=== PATIENT | female | born 1955 | race Caucasian/White ===

== ENCOUNTER 2016-07-23 17:56 | Inpatient (IN) | payer OTHER ==
[~2016-07-23] VITALS: Ht 165.1 cm; Wt 95.3 kg
[~2016-07-23 17:56] MED LIST: AUGMENTIN 875 M1 TAB PO; B12 1MG PE1000 MCG/M IM; DESYREL50 MG PO; DONEPEZIL HCL10 MG PO; DONEPEZIL HYDRO10 MG PO; ESCITALOPRAM10 MG PO; FIORICET 325 MG1 TAB PO; FLEXERIL10 MG PO; GABAPENTIN400 M2 PO; HYDROCODONE/APA1 TA1 PO; LEVOTHROID0.2 MG PO; LEVOTHYROXIN0.025 MG PO; LEVOTHYROXIN0.175 MG PO; MEDROL 2 MG TABL2 MG PO; MOBIC15 MG PO; MORPHINE SULFAT15 M1 PO; MOTRIN 600 MG600 MG PO; MS CONTIN15 M1 PO; MS CONTIN30 MG PO; NAPROSYN375 MG PO; NAPROXEN500 MG PO; OXYCONTIN10 MG PO; PERCOCET 325 MG1 TA2 PO; PREDNISONE 20MG20 MG PO; REGLAN10 MG PO; TRAZODO50 MG PO
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
--- NOTE | 2016-07-23 18:25 | NUR ---
URINE TRIO SENT AND LABS DRAWN VIA BUTTERFLY AND SENT TO LAB (BLUE, SST, LAV)
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
[2016-07-23 18:44] LABS: ABSOLUTE BASOPHIL COUNT 0.1 /CUMM (0.0-0.2); ABSOLUTE EOSINOPHIL COUNT 0.2 /CUMM (0.0-0.7); ABSOLUTE GRANULOCYTE CT 6.5 /CUMM (1.4-6.5); ABSOLUTE LYMPH COUNT 2.1 /CUMM (1.2-3.4); ABSOLUTE MONOCYTE COUNT 0.6 /CUMM (0.10-0.60); BASOPHIL % 0.7 % (0.0-2.0); GRANULOCYTE % 69.1 % (42.2-75.2); HEMATOCRIT 40.1 % (37-47); MEAN CORPUSCULAR HGB 33.1 PG (27.0-31.0); MEAN CORPUSCULAR HGB CONC 34.5 G/DL (33.0-37.0); MEAN CORPUSCULAR VOLUME 95.8 FL (81.0-99.0); PLATELET COUNT 226 /CUMM (130-400); RBC DISTRIBUTION WIDTH 12.6 % (11.5-14.5); RED BLOOD CELL CT 4.18 /CUMM (4.20-5.40); WHITE BLOOD CELL COUNT 9.4 /CUMM (4.8-10.8)
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
--- NOTE | 2016-07-23 20:34 | NUR ---
PER CRISIS, HOLD OVER NIGHT AND [facility] PSYCH BED SEARCH TO BE ATTEMPTED AGAIN TOMORROW. MESSAGE LEFT WITH DAUGHTER BY CRISIS
--- NOTE | 2016-07-23 21:48 | NUR ---
MEDICATED WITH TYLENOL PER EMAR FOR SHOULDER PAIN
--- NOTE | 2016-07-24 | NUR ---
SLEEPING AT THIS TIME SITTER AT DOOR.
--- NOTE | 2016-07-24 04:00 | NUR ---
CONTINUES TO SLEEP SITTER AT DOOR.
--- NOTE | 2016-07-24 08:04 | NUR ---
ASSUMED CARE. PT AWAKE, C/O PAIN IN BOTH SHOULDERS, DR. HUSSEIN AWARE.
--- NOTE | 2016-07-24 10:00 | NUR ---
AM MEDS GIVEN, MS CONTIN 30 MG HELD: GIVEN AT 0830.
--- NOTE | 2016-07-24 11:41 | NUR ---
SW met with the patient for reassessment this AM. The patient presents alert and pleasantly confused. SW will continue to look for a Geropsychiatry inaptient placement, however Dr. Barahona would like further medical clearance. Case discussed with Dr. Jean-Baptiste who will order additional tests. MARICRUZ will continue to follow.
--- NOTE | 2016-07-24 13:58 | NUR ---
LABS DRAWN ORDERED. UA SENT.
--- NOTE | 2016-07-24 15:42 | NUR ---
ASSUMED CARE OF PT. PT UP TO BATHROOM. PT CONCERNED SHE HAS NO CLEAN UNDERWEAR. GIVEN DISPOSABLE UNDERWEAR AND BARRIER WIPES. PT INFORMED SHE HAS UTI AND WILL NEED IV ANTIBIOTICS. IV STARTED BY LALO GARCÍA
--- NOTE | 2016-07-24 16:27 | NUR ---
BLOOD CULTURES DRAWN. HOUSE STAFF IN TO SEE PT. PT ORIENTED X2-3 BUT OTHERWISE WITH INAPPRORIATE CONVERSATIONS INDICATING CONFUSION. DID NOT REMEMBER THAT I INTORDUCED MYSELF TO HER A FEW MINUTES AGO.
--- NOTE | 2016-07-24 16:32 | NUR ---
PT HAS BED ASSIGNMENT [id number]
[2016-07-24] MEDS ORDERED: OXYCONTIN20 M1 PO (16:47)
[2016-07-24] MEDS ORDERED: OXYCODONE HCL15 M1 PO (16:48)
--- NOTE | 2016-07-24 16:50 | NUR ---
REPORT CALLED TO ELIA ON . ELIA NOTIFIED PT DUE FOR MS CONTIN AND NEURONTIN
--- NOTE | 2016-07-24 17:07 | NUR ---
DR RAINES IN TO SEE PT. NOTIFIED THAT PT HAS NO DOCUMENTED HISTORY OF HTN BUT BLOOD PRESSURES MILDLY ELEVATED IN ED. NORVASC TO BE ORDERED. SPOKED WITH CRISIS TO ASK IF DTR SHOULD BE ALLOWED TO VISIT. CRISIS STATES IT SHOULD BE UP TO PT IF SHE CAN VISIT.
--- NOTE | 2016-07-24 17:20 | NUR ---
Case discussed with Dr. Barahona and Dr. Best and it was determined that the patient would be admitted to the medical service.
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
--- NOTE | 2016-07-24 17:35 | NUR ---
PT GIVEN NORVASC. RODRIGEZ ON [address] NOTIFIED THAT PT HAS ORDER FOR PT SAFETY MONITOR. TRANSFER TO FLOOR DELAYED UNTIL SITTER CAN BE ARRANGED
--- NOTE | 2016-07-24 17:56 | NUR ---
ELIA ON CALLED TO GIVE UPDATE. INFORMED THAT PT GOT ELENAC AND THAT SITTER IS ACCOMPANING PT UPSTAIRS
--- NOTE | 2016-07-24 17:57 | NUR ---
ELIA AWARE EKG HAS BEEN ORDERED AND NEEDS TO BE DONE
[2016-07-24 18:19] VITALS: BP 190/80
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
[2016-07-24 23:40] VITALS: BP 152/76
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
--- NOTE | 2016-07-25 07:24 | PN- Housestaff ---
SHRUTI RAINES MD 07/25/16 0724: Subjective Follow-up For: Altered mental status Suicidal ideation UTI Subjective: Patient seen and examined. She is seen sitting upright in bed resting comfortably. She appears to be in no acute distress. Sitter still in place - collateral information obtained reveals that patient "had a good night". She says she feels better today than in previous days and is "surrounded by wonderful people". She is oriented to person and place but believes the year is 2039. Her speech is of normal tone and alex but tangential. She is pleasant and appropriate. She reports pain in her shoulders that she attributes to her "rotator cuffs". She also admits to urinary burning and pain without frequency or urgency. Additionally she denies any current headache, fever, chills, chest pain, shortness of breath, nausea, vomiting, diarrhea. No overnight events reported. Review of Systems Constitutional: Reports: see HPI. Objective Last 24 Hrs of Vital Signs/I&O Vital Signs Date Time Temp Pulse Resp B/P Pulse O2 O2 Flow FiO2 Ox Delivery Rate 07/25 0931 150/70 07/25 0823 98.1 57 20 150/69 99 Room Air 07/24 2340 98.5 62 20 152/76 95 Room Air 07/24 1842 70 190/80 07/24 1819 98.2 70 19 190/80 95 Room Air 07/24 1727 62 178/86 07/24 1707 98.0 62 16 178/86 98 Room Air 07/24 1604 97.3 98 15 163/74 98 Room Air Intake & Output 07/25 1600 07/25 0800 07/25 0000 Intake Total 400 100 Output Total Balance 400 100 Intake, Oral 400 100 Patient 95.254 kg Weight Physical Exam General Appearance: Alert, Cooperative, No Acute Distress Other Physical Findings: General - well developed, middle-aged woman in no acute distress HEENT - NCAT, EOMI, PERRL, anicteric sclera CVS - S1, S2 w/o m/g/r Resp - CTA bilaterally GI - soft, nontender, nondistended, bowel sounds +, no CVA tenderness Neuro - Awake and alert, orient to person/place and not time, CN II - XII grossly intact Ext - distal pulses 2+, no BL LE edema Current Medications: Current Medications Sig/Nae Start time Last Medication Dose Route Stop Time Status Admin Acetaminophen 650 MG Q6P PRN 07/24 1730 AC PO Amlodipine Besylate 5 MG DAILY 07/25 1000 AC 07/25 PO 0931 Amlodipine Besylate 0 .STK-MED ONE 07/24 1727 DC PO Amlodipine Besylate 5 MG ONCE ONE 07/24 1715 DC 07/24 PO 07/24 1716 1727 Captopril 6.25 MG ONCE ONE 07/24 1830 DC 07/24 PO 07/24 1831 1842 Ceftriaxone Sodium 1,000 MG DAILY 07/25 1000 AC 07/25 IV 0931 Ceftriaxone Sodium 0 .STK-MED ONE 07/24 1636 DC .ROUTE Ceftriaxone Sodium 1,000 MG ONCE ONE 07/24 1530 DC 07/24 IV 07/24 1531 1649 Escitalopram Oxalate 5 MG DAILY 07/25 1000 AC 07/25 PO 1131 Escitalopram Oxalate 10 MG DAILY 07/24 1000 DC 07/24 PO 1005 Gabapentin 400 MG TID 07/24 1000 AC 07/25 PO 1131 Haloperidol 0.5 MG DAILY PRN 07/24 1815 AC PO Heparin Sodium 5,000 UNIT Q8 07/24 2200 AC 07/25 (Porcine) SC 0643 Influenza Virus 0.5 ML ONCE ONE 07/24 1930 DC 07/24 Vaccine IM 07/248 Ketorolac 15 MG Q6P PRN 07/24 1730 AC Tromethamine IV Levothyroxine Sodium 0.2 MG DAILY AC 07/24 0825 AC 07/25 PO 0643 Morphine Sulfate 30 MG TID 07/24 1000 DC PO Morphine Sulfate 30 MG Q8 07/24 0801 DC 07/24 PO 0831 Nicotine 7 MG DAILY 07/25 1127 AC TOP Oxycodone HCl 15 MG Q8P PRN 07/25 1100 AC 07/25 PO 1132 Oxycodone HCl 10 MG Q6P PRN 07/24 1730 DC PO Polyethylene Glycol 17 GM AT BEDTIME PRN 07/24 1745 AC PO Last 24 Hrs of Lab/Hunter Results Last 24 Hrs of Labs/Mics: Laboratory Tests 07/24/16 1355: Urine Color YEL, Urine Clarity CLEAR, Urine pH 6.5, Ur Specific [place] 1.015, Urine Protein NEG, Urine Ketones NEG, Urine Nitrite POS H, Urine Bilirubin NEG, Urine Urobilinogen 0.2, Ur Leukocyte Esterase MOD H, Ur Microscopic SEDIMENT EXAMINED, Urine RBC 5-10 H, Urine WBC 15-25 H, Ur Epithelial Cells MOD H, Urine Hemoglobin TRACE-INTACT, Urine Glucose NEG 07/24/16 1353: RBC Folate 524 07/24/16 1353: Vitamin B12 346, TSH 32.100 H, Free T4 1.13, RPR Titer/FTA Pending Microbiology 07/24 1617 BLOOD: Blood Culture - RES 07/24 1609 BLOOD: Blood Culture - RES Assessment/Plan Assessment: Patient is appropriate and calm today. She denies any further suicidal or homicidal ideation. She does remain confused and tangential. One to one sitter is still in place. Nursing staff reports that patient remains pleasantly confused today as she was yesterday. She remains on antibiotics for her urinary tract infection. Psych consult still pending. Acute delerium/psychosis/suicidal ideation: Patient does not meet criteria for major depression at this time. Denies suicidal/homicidal ideation and visual/auditory hallucinations. Previously a patient of Dr. Orantes formerly maintained on donepezil and escitalopram. RBC folate, B12 normal. -Consider CT Head if patients mental status fails to improve or worsen -Psych consult -F/U RPR Possible urinary tract infection: Urinalysis demonstrated WBC 15-25, however also contained moderate amount of epithelial cells. She is afebrile without any leukocytosis but admits to symptoms of urinary discomfort without frequency/urgeny/hematuria. Physical exam was negative for CVA/suprapubic tenderness. -Ceftriaxone 1g IV Daily -Urine Culture (07/23/16) growing gram negative rods Chronic Headache: Reports chronic headache for the past year described as 3/10 throbbing pain that wraps like a band around her head without any obvious triggers or aura. She states its relieved with coffee consumptions. She was given Fioricet at an ED visit at one point in time and reports that is did not relieve her symptoms. -Monitor for meningeal signs History of Chronic Pain: Patient of pain management physician Dr. Stroud of [place]. Currently receiving prescriptions for Oxycontin 20mg Daily last received 06/28/17 (30 day suppy) and Oxycodone 15mg Q8H PRN last received 06/23/17 (30 day supply). Patient denies taking either of these medications as her daughter reportedly said "they are too expensive". -Meloxicam 15mg PO Daily -Gabapentin 400mg PO TID -Oxycodone 15mg PO Q8H PRN PAIN -Oxycontin on hold for altered mental status New Onset Hypertension: Blood pressures in the ED were found to be consistently elevated to the 150-190 systolic despite patient denying any history of elevated blood pressures or antihypertensives. -Monitor blood pressure -Amlodipine 5mg PO Daily -Captopril Anxiety/Depression - lexapro 5mg PO Daily Hypothyroidsm - Levothyroxine 200mcg PO daily Pain Plan: -Acetaminophen 650mg PO Q6H PRN PAIN 1-3 Diet - Heart Healthy diet DVT PPx - subcutaneous heparin Code Status - DNR/DNI, unsure if patient understands ramifications of this choice, reassess when lucid and obtain collateral information form daughter Problem List: 1. UTI (urinary tract infection) Pain Ratin Pain Location: None Pain Goal: Pain 7 or less Pain Plan: As noted in plan Tomorrow's Labs & Rationales: KYMBERLY RODGERS MD 07/25/16 1132: Attending MD Review Statement Attending Statement Attending MD Statement: examined this patient, discuss w/resident/PA/MATE CHIEF, agreed w/resident/PA/MATE CHIEF, reviewed EMR data (avail) Attending Assessment/Plan: 61F PMH depression, HTN, hypothyroidism admitted to medicine for UTI, hypertension, and possible delirium. Patient presented initially with suicidal ideation and harmful thoughts. She is coherent, alert, and exhibiting no signs of confusion or delirium. She reports dysuria but otherwise has no physical complaints. UA suggestive of UTI. Hypertension is improved. Labs show subclinical hypothyroidism. 1. UTI 2. Hypertensive urgency 3. Subclinical hypothyroidism 4. Suicidal ideation 5. Depression Plan - Continue Ceftriaxone - Continue Amlodipine for hypertension, may increase to 10mg if uncontrolled - Continue Synthroid - Follow urine culture - Follow psychiatry recommendations - Bedside sitter for SI - If no urine culture growth tomorrow can be transferred to [facility] for further psychiatric care - DVT PPx
[2016-07-25 08:23] VITALS: BP 150/69
--- NOTE | 2016-07-25 15:13 | Cons- Psychiatry ---
Psychiatric Consult Date of Consult: 07/25/16 Reason for Consult: "SUICIDAL IDEATION, ACUTE DELIRIUM VS. ALTERED MENTAL STATUS" History of Present Illness: 61 F BIBA on PEER after argument with dtr on 07/23/16 at 1804. Pt had walked out of the house and stated that she was going to "sit in front of a truck," per the H&P. The patient had been admitted to acute inpatient psychiatry in June, for suicidal ideation and confusion. At that time, there was concern about the patient's relationship with her daughter, Dayana, and her 6 y.o. g'dtr. The dtr was not contributing financially to the household, and the patient wanted her to leave. A referral was made to Elderly Protective Services, with social work following. Now, the patient reports that her daughter is not giving her her thyroid medication, nor opioid pain medications, stating that they are too expensive. The patient has Medicare/[employer] insurance. TSH was 32.1, or elevated on admission. Allergies: Coded Allergies: NO KNOWN ALLERGIES (02/13/15) Current Medications: Current Medications Sig/Nae Start time Last Medication Dose Route Stop Time Status Admin Acetaminophen 650 MG Q6P PRN 07/24 1730 AC PO Amlodipine Besylate 5 MG DAILY 07/25 1000 AC 07/25 PO 0931 Amlodipine Besylate 0 .STK-MED ONE 07/24 1727 DC PO Amlodipine Besylate 5 MG ONCE ONE 07/24 1715 DC 07/24 PO 07/24 1716 1727 Captopril 6.25 MG ONCE ONE 07/24 1830 DC 07/24 PO 07/24 1831 1842 Ceftriaxone Sodium 1,000 MG DAILY 07/25 1000 AC 07/25 IV 0931 Ceftriaxone Sodium 0 .STK-MED ONE 07/24 1636 DC .ROUTE Ceftriaxone Sodium 1,000 MG ONCE ONE 07/24 1530 DC 07/24 IV 07/24 1531 1649 Escitalopram Oxalate 5 MG DAILY 07/25 1000 AC 07/25 PO 1131 Escitalopram Oxalate 10 MG DAILY 07/24 1000 DC 07/24 PO 1005 Gabapentin 400 MG TID 07/24 1000 AC 07/25 PO 1131 Haloperidol 0.5 MG DAILY PRN 07/24 1815 AC PO Heparin Sodium 5,000 UNIT Q8 07/24 2200 AC 07/25 (Porcine) SC 1428 Influenza Virus 0.5 ML ONCE ONE 07/24 1929 DC 07/24 Vaccine IM 07/24 Ketorolac 15 MG Q6P PRN 07/24 1730 AC Tromethamine IV Levothyroxine Sodium 0.2 MG DAILY AC 07/24 0825 AC 07/25 PO 0643 Morphine Sulfate 30 MG TID 07/24 1000 DC PO Morphine Sulfate 30 MG Q8 07/24 0801 DC 07/24 PO 0831 Nicotine 7 MG DAILY 07/25 1127 AC 07/25 TOP 1428 Oxycodone HCl 15 MG Q8P PRN 07/25 1100 AC 07/25 PO 1132 Oxycodone HCl 10 MG Q6P PRN 07/24 1730 DC PO Polyethylene Glycol 17 GM AT BEDTIME PRN 07/24 1745 AC PO Past History Past Medical History Neurological: Alzheimer's disease, dementia EENT: NONE Cardiovascular: NONE Respiratory: NONE Gastrointestinal: NONE Hepatic: NONE Renal: NONE Musculoskeletal: CHRONIC PAIN Psychiatric: anxiety, chronic pain disorder, depression Endocrine: hypothyroidism, THYROIDECTOMY Blood Disorders: NONE Cancer(s): NONE 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 HEALTH 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 DIRECTOR/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: NONE Past Surgical History Surgical History: hysterectomy, BILATERAL SHOUDLER, FOOT SURGERY Psychosocial History Strengths/Capabilities: Desire to feel better Treatment-seeking Cooking, cleaning, babysitting Physical Limitations (Interventions): Pain in shoulders, back, knee Psychiatric Treatment History Psych Treatment Psychiatric Treatment Yes Inpatient Treatment Yes Outpatient Treatment Yes Location of Treatment [facility] June 2015 Reason for Treatment +SI Dates of Treatment June 2015 Response to Treatment Unknown Diagnosis: Major depression, Alzheimer's Risk Factors: SA/MH hospitalized, isolate/no social support, limited support Substance Use/Abuse History Drug Use/Abuse Substances Used/Abused No Substance Abuse Treatment Substance Abuse Treatment Past Substance Abuse [place] No Inpatient Treatment No Outpatient Treatment No Assessment/Plan Diffential Diagnosis: Alzheimer's dementia, by history Delirium due to toxic or metabolic condition Impression: The patient is aware that she has Alzheimer's disease, and reports memory problems. She is not currently suidicidal, nor psychotic, but pleasantly confused. Her confusion and delusions probably have a baseline in her Alzheimers dementia, but may be complicated by delirium 2/2 UTI or other process. Consider a social work consult to assist with placement back in the home, if Elderly Protective Services feels it is safe. We are concerned that the patient has presented before with reports of non-support by her daughter, and now states that she is not receiving her medications, due to the daughter's financial concerns. Provisional Treatment Plan: 1. Social work consult to assist with the patient's transition to home environment. The patient is reporting that her daughter is not giving her her medications. The patient would benefit from an evaluation and psychiatric treatment with [facility]. Elderly Protective Services notification. 2. Continue escitalopram 5 mg PO daily for depression. This medication will need review by her outside provider, and can be titrated to 10 mg PO daily after one week, if not therapeutic. a. Monitor for hyponatremia and hold if this occurs. b. Monitor EKG and hold if arrhythmia or if QTc greater than 475 mS. 3. Continue 1:1 sitter for confusion. 4. Complete the reversible dementia workup. 5. Avoid delirium triggers, such as opioid or benzodiazepine or anticholinergic medications. We will continue to follow along with you. Dalton Carranza APRN, Pager [phone]
[2016-07-25 16:09] VITALS: BP 142/80
[2016-07-26 00:15] VITALS: BP 160/90
--- NOTE | 2016-07-26 06:57 | PN- Housestaff ---
STEVIE GASTELUM 07/26/16 0657: Subjective Follow-up For: 1. AMS Subjective: The patient was comfortable this morning. Did not have any complaints. Stated that she slept well overnight. Did not have any SI or HI. Currently has a one- to-one sitter in place. Alert and oriented to time place and person. No abdominal pain, difficulty urination. Vitals remained stable overnight. And she was afebrile. Review of Systems Constitutional: Reports: see HPI. Objective Last 24 Hrs of Vital Signs/I&O Vital Signs Date Time Temp Pulse Resp B/P Pulse O2 O2 Flow FiO2 Ox Delivery Rate 07/26 0015 98.2 60 20 160/90 98 07/25 1609 98.5 58 21 142/80 97 Room Air 07/25 0931 150/70 07/25 0823 98.1 57 20 150/69 99 Room Air Intake & Output 07/26 0800 07/26 0000 07/25 1600 Intake Total 850 1000 Output Total Balance 850 1000 Intake, Oral 850 1000 Physical Exam General Appearance: No Acute Distress Other Physical Findings: General Exam: AAOx3, No acute distress, Skin: No rashes, no breakdown HEENT: PERRLA, EOMI Neck: Supple, No JVD No cervical lymphadenopathy CVS: Reg Rate, Normal S1,S2, No MGR Resp: Normal air entry, no ronchi/rales Abdomen: Soft, No tenderness, Normal Bowel Sounds Neuro: Normal Speech, Strength 5/5 b/l x 4 extremities, Sensation intact, CN III -XII NL, Reflexes 2+ Extremities: No cyanosis, pedal edema Current Medications: Current Medications Sig/Nae Start time Last Medication Dose Route Stop Time Status Admin Acetaminophen 650 MG Q6P PRN 07/24 1730 AC PO Amlodipine Besylate 5 MG DAILY 07/25 1000 AC 07/25 PO 0931 Ceftriaxone Sodium 1,000 MG DAILY 07/25 1000 AC 07/25 IV 0931 Escitalopram Oxalate 5 MG DAILY 07/25 1000 AC 07/25 PO 1131 Escitalopram Oxalate 10 MG DAILY 07/24 1000 DC 07/24 PO 1005 Gabapentin 400 MG TID 07/24 1000 AC 07/25 PO 2124 Haloperidol 0.5 MG DAILY PRN 07/24 1815 AC PO Heparin Sodium 5,000 UNIT Q8 07/24 2200 AC 07/26 (Porcine) SC 0642 Ketorolac 15 MG Q6P PRN 07/24 1730 AC Tromethamine IV Levothyroxine Sodium 0.2 MG DAILY AC 07/24 0825 AC 07/26 PO 0642 Nicotine 7 MG DAILY 07/25 1127 AC 07/25 TOP 1428 Oxycodone HCl 15 MG Q8P PRN 07/25 1100 AC 07/25 PO 1132 Polyethylene Glycol 17 GM AT BEDTIME PRN 07/24 1745 AC PO Assessment/Plan Assessment: She is an older lady with a past medical history of ulcer [place] disease, dementia, depression is being evaluated for altered mental status and suicidal ideation. She is being treated for acute onset of altered mental status likely from a possible urinary tract infection. Acute delerium/psychosis/suicidal ideation: Patient does not meet criteria for major depression at this time. Denies suicidal/homicidal ideation and visual/auditory hallucinations. Previously a patient of Dr. Orantes formerly maintained on donepezil and escitalopram. RBC folate, B12 normal. -Consider CT Head if patients mental status fails to improve or worsen -Psych consult for further advice. -RPR pending Possible urinary tract infection: Urinalysis demonstrated WBC 15-25, however also contained moderate amount of epithelial cells. She is afebrile without any leukocytosis but admits to symptoms of urinary discomfort without frequency/urgeny/hematuria. Physical exam was negative for CVA/suprapubic tenderness. -Ceftriaxone 1g IV Daily -Urine Culture (07/23/16) growing gram negative rods, sensitivities pending. Chronic Headache: Reports chronic headache for the past year described as 3/10 throbbing pain that wraps like a band around her head without any obvious triggers or aura. She states its relieved with coffee consumptions. She was given Fioricet at an ED visit at one point in time and reports that is did not relieve her symptoms. -Monitor for meningeal signs History of Chronic Pain: Patient of pain management physician Dr. Stroud of [place]. Currently receiving prescriptions for Oxycontin 20mg Daily last received 06/28/17 (30 day suppy) and Oxycodone 15mg Q8H PRN last received 06/23/17 (30 day supply). Patient denies taking either of these medications as her daughter reportedly said "they are too expensive". -Meloxicam 15mg PO Daily -Gabapentin 400mg PO TID -Oxycodone 15mg PO Q8H PRN PAIN -Oxycontin on hold for altered mental status New Onset Hypertension: Blood pressures in the ED were found to be consistently elevated to the 150-160 systolic despite patient denying any history of elevated blood pressures or antihypertensives. -Monitor blood pressure -Amlodipine 5mg PO Daily -An GENI inhibitor could be started at the time of discharge for better blood pressure control. Anxiety/Depression - lexapro 5mg PO Daily Hypothyroidsm - Levothyroxine 200mcg PO daily Pain Plan: -Acetaminophen 650mg PO Q6H PRN PAIN 1-3 Diet - Heart Healthy diet DVT PPx - subcutaneous heparin Code Status - DNR/DNI, unsure if patient understands ramifications of this choice, reassess when lucid and obtain collateral information form daughter Problem List: 1. UTI (urinary tract infection) 2. Dementia, senile, with, delirium 3. Alzheimer's dementia 4. Suicidal ideation Pain Ratin Pain Location: Headache Pain Goal: Pain 4 or less Pain Plan: Oxycodone, Tylenol Tomorrow's Labs & Rationales: CBC to monitor for leukocytosis, patient has urinary tract infection. KYMBERLY REYES MD 07/26/16 1123: Attending MD Review Statement Attending Statement Attending MD Statement: examined this patient, discuss w/resident/PA/LATENT FINGERPRINT EXAMINER, agreed w/resident/PA/LATENT FINGERPRINT EXAMINER, reviewed EMR data (avail) Attending Assessment/Plan: 61F PMH depression, HTN, hypothyroidism admitted to medicine for UTI, hypertension, and possible delirium. Patient presented initially with suicidal ideation and harmful thoughts. She is coherent, alert, and exhibiting no signs of confusion or delirium. She reports dysuria but otherwise has no physical complaints. UA suggestive of UTI. Hypertension is improved. Labs show subclinical hypothyroidism. Urine culture growing gram negative rods. 1. UTI 2. Hypertensive urgency 3. Subclinical hypothyroidism 4. Suicidal ideation 5. Depression Plan - Continue Ceftriaxone - Continue Amlodipine for hypertension, may increase to 10mg if uncontrolled - Continue Synthroid - Follow urine culture - Follow psychiatry recommendations - Bedside sitter for SI - DVT PPx - Social work consult on Thursday, as patient does not feel safe going home due to unstable home situation. Will work with case management and social work to find safe discharge for patient after urine culture results return and patient's mental status improves.
[2016-07-26 08:11] VITALS: BP 155/74
[2016-07-26 09:15] LABS: ABSOLUTE BASOPHIL COUNT 0 /CUMM (0.0-0.2); ABSOLUTE EOSINOPHIL COUNT 0.2 /CUMM (0.0-0.7); ABSOLUTE GRANULOCYTE CT 5.9 /CUMM (1.4-6.5); ABSOLUTE LYMPH COUNT 1.6 /CUMM (1.2-3.4); ABSOLUTE MONOCYTE COUNT 0.7 /CUMM (0.10-0.60); BASOPHIL % 0.6 % (0.0-2.0); EOSINOPHIL % 2.2 % (0-5); MEAN CORPUSCULAR HGB 33.4 PG (27.0-31.0); MEAN CORPUSCULAR HGB CONC 34.7 G/DL (33.0-37.0); MEAN CORPUSCULAR VOLUME 96.3 FL (81.0-99.0); MEAN PLATELET VOLUME 7.5 FL (7.4-10.4); PLATELET COUNT 215 /CUMM (130-400); RBC DISTRIBUTION WIDTH 12.7 % (11.5-14.5); RED BLOOD CELL CT 4.46 /CUMM (4.20-5.40); WHITE BLOOD CELL COUNT 8.4 /CUMM (4.8-10.8)
[2016-07-26 16:01] VITALS: BP 158/88
[2016-07-26 23:54] VITALS: BP 150/82
--- NOTE | 2016-07-27 08:16 | PN- Housestaff ---
STEVIE GASTELUM 07/27/16 0815: Subjective Follow-up For: ams Subjective: The patient was comfortable this morning. Currently has a one-to-one sitter in place. Vitals remained stable overnight. And she was afebrile. Review of Systems Constitutional: Reports: see HPI. Objective Last 24 Hrs of Vital Signs/I&O Vital Signs Date Time Temp Pulse Resp B/P Pulse O2 O2 Flow FiO2 Ox Delivery Rate 07/26 2354 98.7 57 20 150/82 97 07/26 1601 97.4 68 19 158/88 98 Room Air Intake & Output 07/27 1600 07/27 0800 07/27 0000 Intake Total 640 Output Total Balance 640 Intake, Oral 640 Physical Exam General Appearance: No Acute Distress Other Physical Findings: General Exam: AAOx3, No acute distress, Skin: No rashes, no breakdown HEENT: PERRLA, EOMI Neck: Supple, No JVD No cervical lymphadenopathy CVS: Reg Rate, Normal S1,S2, No MGR Resp: Normal air entry, no ronchi/rales Abdomen: Soft, No tenderness, Normal Bowel Sounds Neuro: Normal Speech, Strength 5/5 b/l x 4 extremities, Sensation intact, CN III -XII NL, Reflexes 2+ Extremities: No cyanosis, pedal edema Current Medications: Current Medications Sig/Nae Start time Last Medication Dose Route Stop Time Status Admin Acetaminophen 650 MG .STK-MED ONE 07/26 1605 DC PO 07/26 1606 Acetaminophen 650 MG Q6P PRN 07/24 1730 AC 07/26 PO 1607 Amlodipine Besylate 5 MG DAILY 07/25 1000 AC 07/26 PO 0851 Ceftriaxone Sodium 1,000 MG DAILY 07/25 1000 AC 07/26 IV 0852 Escitalopram Oxalate 5 MG DAILY 07/25 1000 AC 07/26 PO 0851 Gabapentin 400 MG TID 07/24 1000 AC 07/26 PO 2227 Haloperidol 0.5 MG DAILY PRN 07/24 1815 AC PO Heparin Sodium 5,000 UNIT Q8 07/24 2200 AC 07/27 (Porcine) SC 0645 Ketorolac 15 MG Q6P PRN 07/24 1730 AC Tromethamine IV Levothyroxine Sodium 0.2 MG DAILY AC 07/24 0825 AC 07/27 PO 0645 Nicotine 7 MG DAILY 07/25 1127 AC 07/26 TOP 0852 Oxycodone HCl 15 MG Q8P PRN 07/25 1100 AC 07/26 PO 2227 Polyethylene Glycol 17 GM AT BEDTIME PRN 07/24 1745 AC PO Assessment/Plan Assessment: She is an older lady with a past medical history of ulcer Preston disease, dementia, depression is being evaluated for altered mental status and suicidal ideation. She is being treated for acute onset of altered mental status likely from a possible urinary tract infection. Acute delerium/psychosis/suicidal ideation: Patient does not meet criteria for major depression at this time. Denies suicidal/homicidal ideation and visual/auditory hallucinations. Previously a patient of Dr. Orantes formerly maintained on donepezil and escitalopram. RBC folate, B12 normal. -Consider CT Head if patients mental status fails to improve or worsen -Psych consult for further advice. -RPR pending Possible urinary tract infection: Urinalysis demonstrated WBC 15-25, however also contained moderate amount of epithelial cells. She is afebrile without any leukocytosis but admits to symptoms of urinary discomfort without frequency/urgeny/hematuria. Physical exam was negative for CVA/suprapubic tenderness. -Ceftriaxone 1g IV Daily. Change to po meds at the time of dischare. -Urine Culture (07/23/16) growing gram negative rods, sensitive to cefriaxone. Chronic Headache: Reports chronic headache for the past year described as 3/10 throbbing pain that wraps like a band around her head without any obvious triggers or aura. She states its relieved with coffee consumptions. She was given Fioricet at an ED visit at one point in time and reports that is did not relieve her symptoms. -Monitor for meningeal signs History of Chronic Pain: Patient of pain management physician Dr. Stroud of [place]. Currently receiving prescriptions for Oxycontin 20mg Daily last received 06/28/17 (30 day suppy) and Oxycodone 15mg Q8H PRN last received 06/23/17 (30 day supply). Patient denies taking either of these medications as her daughter reportedly said "they are too expensive". -Meloxicam 15mg PO Daily -Gabapentin 400mg PO TID -Oxycodone 15mg PO Q8H PRN PAIN -Oxycontin on hold for altered mental status New Onset Hypertension: Blood pressures in the ED were found to be consistently elevated to the 150-160 systolic despite patient denying any history of elevated blood pressures or antihypertensives. -Monitor blood pressure -Amlodipine 5mg PO Daily -An GENI inhibitor could be started at the time of discharge for better blood pressure control. Anxiety/Depression - lexapro 5mg PO Daily Hypothyroidsm - Levothyroxine 200mcg PO daily Pain Plan: -Acetaminophen 650mg PO Q6H PRN PAIN 1-3 Diet - Heart Healthy diet DVT PPx - subcutaneous heparin Code Status - DNR/DNI Problem List: 1. Dementia, senile, with, delirium 2. UTI (urinary tract infection) Pain Ratin Pain Location: none Pain Goal: Pain 4 or less Pain Plan: tylenol Tomorrow's Labs & Rationales: cbc bep KYMBERLY REYES MD 07/27/16 1554: Attending MD Review Statement Attending Statement Attending MD Statement: examined this patient, discuss w/resident/PA/CLINICAL EDITOR, agreed w/resident/PA/CLINICAL EDITOR, reviewed EMR data (avail) Attending Assessment/Plan: 61F PMH depression, HTN, hypothyroidism admitted to medicine for UTI, hypertension, and possible delirium. Patient presented initially with suicidal ideation and harmful thoughts. She is coherent, alert, and exhibiting no signs of confusion or delirium. She reports dysuria but otherwise has no physical complaints. UA suggestive of UTI. Hypertension is improved. Labs show subclinical hypothyroidism. Urine culture growing gram negative rods. 1. UTI 2. Hypertensive urgency 3. Subclinical hypothyroidism 4. Suicidal ideation 5. Depression Plan - Discontinue Ceftriaxone, start Amoxicillin to complete 7 day course for UTI - Continue Amlodipine for hypertension, may increase to 10mg if uncontrolled - Continue Synthroid - Follow urine culture - Follow psychiatry recommendations - Bedside sitter for SI - DVT PPx - Social work consult on Thursday, as patient does not feel safe going home due to unstable home situation. Will work with case management and social work to find safe discharge for patient after urine culture results return and patient's mental status improves.
[2016-07-27 08:32] VITALS: BP 160/64
[2016-07-27 10:25] LABS: ABSOLUTE BASOPHIL COUNT 0 /CUMM (0.0-0.2); ABSOLUTE EOSINOPHIL COUNT 0.2 /CUMM (0.0-0.7); ABSOLUTE GRANULOCYTE CT 6.3 /CUMM (1.4-6.5); ABSOLUTE LYMPH COUNT 1.6 /CUMM (1.2-3.4); ABSOLUTE MONOCYTE COUNT 0.6 /CUMM (0.10-0.60); BASOPHIL % 0.5 % (0.0-2.0); EOSINOPHIL % 2.2 % (0-5); HEMATOCRIT 42.9 % (37-47); MEAN CORPUSCULAR HGB 33.3 PG (27.0-31.0); MEAN CORPUSCULAR HGB CONC 34.6 G/DL (33.0-37.0); MEAN CORPUSCULAR VOLUME 96.5 FL (81.0-99.0); MEAN PLATELET VOLUME 7.5 FL (7.4-10.4); PLATELET COUNT 227 /CUMM (130-400); RBC DISTRIBUTION WIDTH 12.8 % (11.5-14.5); RED BLOOD CELL CT 4.45 /CUMM (4.20-5.40); WHITE BLOOD CELL COUNT 8.7 /CUMM (4.8-10.8)
[2016-07-27 16:11] VITALS: BP 168/70
[2016-07-27 21:00] VITALS: BP 150/80
[2016-07-27 23:57] VITALS: BP 140/82
--- NOTE | 2016-07-28 07:22 | Discharge Summary ---
Visit Information Visit Dates Admission Date: 07/24/16 Discharge Date: 07/28/16 Hospital Course Course Attending Physician: KYMBERLY REYES MD Primary Care Physician: YELENA DOSHI MD Consulting Request: Consulting Specialty: Psychiatry Consulting Physician: Janusz Moy APRN Reason for Consult: Suicidal idea, depression Allergies: Coded Allergies: NO KNOWN ALLERGIES (02/13/15) Disposition Summary Disposition Discharge Disposition: SNF Discharge Instructions General Discharge Information Code Status: Full Code Patient's Diet: Heart healthy diet Patient's Activity: Increase as tolerated Copies To: YELENA DOSHI MD
--- NOTE | 2016-07-28 07:23 | PN- Housestaff ---
YANNA MEANS,SHRUTI 07/28/16 0723: Subjective Follow-up For: Altered mental status Suicidal ideation UTI Subjective: Patient seen and examined. She is seen sitting in her chair at bedside in street clothing resting comfortably. She appears to be in no acute distress. She reports sleeping well and having a good weekend. She continues to deny any suicidal/homicidal ideation. She does say that she is ready to leave here but does not want to return home to her daughter. Additionally she denies any headache, fever, chills, chest pain, shortness of breath, nausea, vomiting, diarrhea. No overnight events reported. Review of Systems Constitutional: Reports: see HPI. Objective Last 24 Hrs of Vital Signs/I&O Vital Signs Date Time Temp Pulse Resp B/P Pulse O2 O2 Flow FiO2 Ox Delivery Rate 07/27 2357 98.3 64 19 140/82 97 Room Air 07/27 2100 68 150/80 98 Room Air 07/27 1611 98.3 71 21 168/70 98 Room Air 07/27 0847 160/65 07/27 0832 97.9 61 20 160/64 96 Intake & Output 07/28 1600 07/28 0800 07/28 0000 Intake Total 120 800 Output Total Balance 120 800 Intake, Oral 120 800 Physical Exam General Appearance: Alert, Cooperative, No Acute Distress Other Physical Findings: General - well developed, middle-aged woman in no acute distress HEENT - NCAT, EOMI, PERRL, anicteric sclera CVS - S1, S2 w/o m/g/r Resp - CTA bilaterally GI - soft, nontender, nondistended Neuro - Awake and alert, CN II - XII grossly intact Ext - distal pulses 2+, no bilateral lower extremity edema Psych - Good insight/judgment, Oriented to person and place, believes its 2015, she is pleasant appropriate and cooperative with examination, she is well groomed and appears comfortable Current Medications: Current Medications Sig/Nae Start time Last Medication Dose Route Stop Time Status Admin Acetaminophen 650 MG Q6P PRN 07/24 1730 AC 07/26 PO 1607 Amlodipine Besylate 5 MG DAILY 07/25 1000 AC 07/27 PO 0847 Amoxicillin 500 MG Q12 07/27 2200 AC 07/27 PO 2057 Ceftriaxone Sodium 1,000 MG DAILY 07/25 1000 DC 07/27 IV 0847 Escitalopram Oxalate 5 MG DAILY 07/25 1000 AC 07/27 PO 0847 Gabapentin 400 MG TID 07/24 1000 AC 07/27 PO 2056 Haloperidol 0.5 MG DAILY PRN 07/24 1815 AC PO Heparin Sodium 5,000 UNIT Q8 07/24 2200 AC 07/28 (Porcine) SC 0605 Ketorolac 15 MG Q6P PRN 07/24 1730 AC Tromethamine IV Levothyroxine Sodium 0.2 MG DAILY AC 07/24 0825 AC 07/28 PO 0608 Nicotine 7 MG DAILY 07/25 1127 AC 07/27 TOP 0847 Oxycodone HCl 15 MG Q8P PRN 07/25 1100 AC 07/27 PO 1010 Polyethylene Glycol 17 GM AT BEDTIME PRN 07/24 1745 AC PO Senna/Docusate Sodium 2 TAB DAILY 07/27 1738 AC 07/27 PO 2056 Last 24 Hrs of Lab/Hunter Results Last 24 Hrs of Labs/Mics: Laboratory Tests 07/28/16 0755: CBC w Diff Pending, WBC Pending, RBC Pending, Hgb Pending, Hct Pending, MCV Pending, MCH Pending, RDW Pending, Plt Count Pending, MPV Pending, PUBS MCHC Pending 07/27/16 0818: CBC w Diff NO MAN DIFF REQ, RBC 4.45, MCV 96.5, MCH 33.3 H, RDW 12.8, MPV 7.5, Gran % 72.0, Lymphocytes % 18.8 L, Monocytes % 6.5, Eosinophils % 2.2, Basophils % 0.5, Absolute Granulocytes 6.3, Absolute Lymphocytes 1.6, Absolute Monocytes 0.6, Absolute Eosinophils 0.2, Absolute Basophils 0, PUBS MCHC 34.6 Assessment/Plan Assessment: Patient reports having a good weekend and is "in a much better place". She continues to deny suicidal/homicidal ideation. She feels safe and ready for discharge but does not want to return home to her daughter. Social work consult to happen today to discuss options. Her daughter Dayana was contacted regarding the events that transpired to bring her mother to the hospital. She states that she has the resources at home to care for her mother including providing and administering all her medications. She admits that it has been difficult to care for her mother since her diagnosis of Alzheimers. Patient was previously seen by Dr. Orantes but no longer follows up as they did not "get along". She was trialed on nameda for alzheimers but was taken off of it for "a side effect". She was also taken off lexapro for unclear reasons. She recently established care with Dr. Guerrero of [facility] and otherwise only follows up her pain management physician Dr. Stroud of [place]. Ceftriaxone was converted to amoxicillin. A meeting with elder protective services will occur tomorrow to determine patient discharge plans. Acute delerium/psychosis/suicidal ideation: Patient does not meet criteria for major depression at this time. Denies suicidal/homicidal ideation and visual/auditory hallucinations. Previously a patient of Dr. Orantes formerly maintained on donepezil and escitalopram. RBC folate, B12 normal. -Consider CT Head if patients mental status fails to improve or worsen -Psych consult for further advice -RPR pending -Social work consult pending Possible urinary tract infection: Urinalysis demonstrated WBC 15-25, however also contained moderate amount of epithelial cells. She is afebrile without any leukocytosis but admits to symptoms of urinary discomfort without frequency/urgeny/hematuria. Physical exam was negative for CVA/suprapubic tenderness. -Augmentin 500mg PO Q12H -Urine Culture (07/23/16) growing E. Coli Chronic Headache: Reports chronic headache for the past year described as 3/10 throbbing pain that wraps like a band around her head without any obvious triggers or aura. She states its relieved with coffee consumptions. She was given Fioricet at an ED visit at one point in time and reports that is did not relieve her symptoms. -Monitor for meningeal signs History of Chronic Pain: Patient of pain management physician Dr. Stroud of [place]. Currently receiving prescriptions for Oxycontin 20mg Daily last received 06/28/17 (30 day suppy) and Oxycodone 15mg Q8H PRN last received 06/23/17 (30 day supply). Patient denies taking either of these medications as her daughter reportedly said "they are too expensive". -Meloxicam 15mg PO Daily -Gabapentin 400mg PO TID -Oxycodone 15mg PO Q8H PRN PAIN -Oxycontin on hold for altered mental status New Onset Hypertension: Blood pressures in the ED were found to be consistently elevated to the 150-160 systolic despite patient denying any history of elevated blood pressures or antihypertensives. -Monitor blood pressure -Amlodipine 5mg PO Daily -An GENI inhibitor could be started at the time of discharge for better blood pressure control. Anxiety/Depression - lexapro 5mg PO Daily Hypothyroidsm - Levothyroxine 200mcg PO daily Pain Plan: -Acetaminophen 650mg PO Q6H PRN PAIN 1-3 Diet - Heart Healthy diet DVT PPx - subcutaneous heparin Code Status - DNR/DNI Problem List: 1. Alzheimer's dementia Pain Ratin Pain Location: Shoulders Pain Goal: Pain 4 or less Pain Plan: As noted in plan Tomorrow's Labs & Rationales: None Consulting Request: Consulting Specialty: Psychiatry Consulting Physician: Janusz Moy APRN Reason for Consult: Suicidal idea, depression TAYO REYES MD 07/28/16 1113: Attending MD Review Statement Attending Statement Attending MD Statement: examined this patient, discuss w/resident/PA/SIMULATION TECH, agreed w/resident/PA/SIMULATION TECH, reviewed EMR data (avail) Attending Assessment/Plan: 61F PMH depression, HTN, hypothyroidism admitted to medicine for UTI, hypertension, and possible delirium. Patient presented initially with suicidal ideation and harmful thoughts. She is coherent, alert, and exhibiting no signs of confusion or delirium. She reports dysuria but otherwise has no physical complaints. UA suggestive of UTI. Hypertension is improved. Labs show subclinical hypothyroidism. Urine culture growing gram negative rods. 1. UTI 2. Hypertensive urgency 3. Subclinical hypothyroidism 4. Suicidal ideation 5. Depression Plan - Stable for discharge home - Discontinue Ceftriaxone, start Amoxicillin to complete 5 day course for UTI - Continue Amlodipine for hypertension, may increase to 10mg if uncontrolled - Continue Synthroid - Follow psychiatry recommendations - Social work consult for discharge planning
--- NOTE | 2016-07-28 07:31 | Patient Discharge Instructions ---
Discharge Instructions General Discharge Information You were seen/treated for: Acute delirium due to urinary tract infection Alzheimer's dementia Depression with previous suicidal idea Special Instructions: Please follow a primary doctor after discharge within 1 week Please follow vegetable thinner/psychiatry for demantia with depression Diet Continue normal diet: Yes Recommended Diet: Heart Healthy Activity Full Activity/No Limits: Yes Activity Self Limited: No Other activity limits: Increase as tolerated Avoid fall risk Acute Coronary Syndrome Inclusion Criteria At DC or during hospital stay patient has or had the following: ACS DIAGNOSIS No Discharge Core Measures Meds if any: Prescribed or Continued at Discharge Meds if any: NOT Prescribed or Continued at Discharge Congestive Heart Failure Inclusion Criteria At DC or during hospital stay patient has or had the following: CHF DIAGNOSIS No Discharge Core Measures Meds if any: Prescribed or Continued at Discharge Meds if any: NOT Prescribed or Continued at Discharge Cerebrovascular accident Inclusion Criteria At DC or during hospital stay patient has or had the following: CVA/TIA Diagnosis No Discharge Core Measures Meds if any: Prescribed or Continued at Discharge Meds if any: NOT Prescribed or Continued at Discharge Venous thromboembolism Inclusion Criteria VTE Diagnosis No VTE Type NONE VTE Confirmed by (Test) NONE Discharge Core Measures - Per Current guidelines, there needs to be overlap - treatment for the first 5 days of Warfarin therapy. - If discharged on Warfarin prior to 5 days of - overlap therapy, the patient will need to be - assessed for post discharge needs including - *Post discharge parental anticoagulation - *Warfarin and/or parental anticoagulation education - *Follow up date to check INR post discharge At least 5 days overlap therapy as Inpatient No Meds if any: Prescribed or Continued at Discharge Note: Overlap Therapy is Warfarin and Anticoagulant Meds if any: NOT Prescribed or Continued at Discharge
[2016-07-28 08:24] VITALS: BP 142/80
[2016-07-28 09:05] LABS: ABSOLUTE BASOPHIL COUNT 0.1 /CUMM (0.0-0.2); ABSOLUTE EOSINOPHIL COUNT 0.2 /CUMM (0.0-0.7); ABSOLUTE GRANULOCYTE CT 6.6 /CUMM (1.4-6.5); ABSOLUTE LYMPH COUNT 2.1 /CUMM (1.2-3.4); ABSOLUTE MONOCYTE COUNT 0.9 /CUMM (0.10-0.60); BASOPHIL % 0.6 % (0.0-2.0); EOSINOPHIL % 2.1 % (0-5); GRANULOCYTE % 67.1 % (42.2-75.2); MEAN CORPUSCULAR HGB 33.1 PG (27.0-31.0); MEAN CORPUSCULAR HGB CONC 34.5 G/DL (33.0-37.0); MEAN CORPUSCULAR VOLUME 95.8 FL (81.0-99.0); MEAN PLATELET VOLUME 7.8 FL (7.4-10.4); PLATELET COUNT 238 /CUMM (130-400); RBC DISTRIBUTION WIDTH 12.9 % (11.5-14.5); WHITE BLOOD CELL COUNT 9.9 /CUMM (4.8-10.8)
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
[2016-07-28 16:05] VITALS: BP 170/88
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
[2016-07-28 22:34] VITALS: BP 124/60
[2016-07-29 06:19] VITALS: BP 120/62
--- NOTE | 2016-07-29 07:35 | PN- Housestaff ---
Subjective Follow-up For: Altered mental status Alzheimers Dementia Subjective: Patient seen and examined. She is seen sitting in her chair at bedside wearing blue disposable scrubs. She appears to be in no acute distress. She reports feeling fine and ready to be discharged, but does admit that she does have some reservations about being discharged to home. Otherwise she denies any headache, fever, chills, chest pain, palpitations, shortness of breath, nausea, vomiting, diarrhea, urinary frequency/urgency/pain. No overnight events reported. Review of Systems Constitutional: Reports: see HPI. Objective Last 24 Hrs of Vital Signs/I&O Vital Signs Date Time Temp Pulse Resp B/P Pulse O2 O2 Flow FiO2 Ox Delivery Rate 07/29 0945 126/70 07/29 0619 97.8 62 20 120/62 98 Room Air 07/28 2234 98.3 56 18 124/60 95 Room Air Intake & Output 07/29 1600 07/29 0800 07/29 0000 Intake Total 1500 500 300 Output Total 1200 Balance 300 500 300 Intake, Oral 1500 500 300 Number 3 Bowel Movements Output, Urine 1200 Patient 95.254 kg Weight Physical Exam General Appearance: Alert, Cooperative, No Acute Distress Other Physical Findings: General - well developed, well nourished, elderly woman in no acute distress HEENT - NCAT, EOMI, PERRL, anicteric sclera CVS - S1, S2 w/o m/g/r Resp - CTA bilaterally GI - soft, nontender, nondistended, bowel sounds present Neuro - Awake and alert, CN II - XII grossly intact Ext - distal pulses intact, no lower extremity edema Current Medications: Current Medications Sig/Nae Start time Last Medication Dose Route Stop Time Status Admin Acetaminophen 650 MG Q6P PRN 07/24 1730 DCD 07/26 PO 1607 Amlodipine Besylate 5 MG DAILY 07/25 1000 DCD 07/29 PO 0945 Amoxicillin 500 MG Q12 07/27 2200 DCD 07/29 PO 0945 Escitalopram Oxalate 5 MG DAILY 07/25 1000 DCD 07/29 PO 0944 Gabapentin 400 MG TID 07/24 1000 DCD 07/29 PO 0944 Haloperidol 0.5 MG DAILY PRN 07/24 1815 DCD PO Heparin Sodium 5,000 UNIT Q8 07/24 2200 DCD 07/29 (Porcine) SC 1400 Ketorolac 15 MG Q6P PRN 07/24 1730 DCD Tromethamine IV Levothyroxine Sodium 0.2 MG DAILY AC 07/24 0825 DCD 07/29 PO 0621 Nicotine 7 MG DAILY 07/25 1127 DCD 07/29 TOP 0943 Oxycodone HCl 15 MG Q8P PRN 07/25 1100 DCD 07/29 PO 1407 Polyethylene Glycol 17 GM AT BEDTIME PRN 07/24 1745 DCD PO Senna/Docusate Sodium 2 TAB DAILY 07/27 1738 DCD 07/29 PO 0944 Assessment/Plan Assessment: A meeting with elder protective services occured today where discharge planning and safety were discussed. It was determined and discussed with patient that she will be discharged to home with follow up by EPS. She is to follow up with Dr. Guerrero as outpatient for further care. She is also to establish care with a neurologist for further care of her alzheimers disease. Acute delerium/psychosis/suicidal ideation: Patient does not meet criteria for major depression at this time. Denies suicidal/homicidal ideation and visual/auditory hallucinations. Previously a patient of Dr. Orantes formerly maintained on donepezil and escitalopram. RBC folate, B12 normal. -Consider CT Head if patients mental status fails to improve or worsen -Psych consult for further advice -RPR pending -Social work consult pending Possible urinary tract infection: Urinalysis demonstrated WBC 15-25, however also contained moderate amount of epithelial cells. She is afebrile without any leukocytosis but admits to symptoms of urinary discomfort without frequency/urgeny/hematuria. Physical exam was negative for CVA/suprapubic tenderness. -Augmentin 500mg PO Q12H -Urine Culture (07/23/16) growing E. Coli Chronic Headache: Reports chronic headache for the past year described as 3/10 throbbing pain that wraps like a band around her head without any obvious triggers or aura. She states its relieved with coffee consumptions. She was given Fioricet at an ED visit at one point in time and reports that is did not relieve her symptoms. -Monitor for meningeal signs History of Chronic Pain: Patient of pain management physician Dr. Stroud of [facility]. Currently receiving prescriptions for Oxycontin 20mg Daily last received 06/28/17 (30 day suppy) and Oxycodone 15mg Q8H PRN last received 06/23/17 (30 day supply). Patient denies taking either of these medications as her daughter reportedly said "they are too expensive". -Meloxicam 15mg PO Daily -Gabapentin 400mg PO TID -Oxycodone 15mg PO Q8H PRN PAIN -Oxycontin on hold for altered mental status New Onset Hypertension: Blood pressures in the ED were found to be consistently elevated to the 150-160 systolic despite patient denying any history of elevated blood pressures or antihypertensives. -Monitor blood pressure -Amlodipine 5mg PO Daily -An GENI inhibitor could be started at the time of discharge for better blood pressure control. Anxiety/Depression - lexapro 5mg PO Daily Hypothyroidsm - Levothyroxine 200mcg PO daily Pain Plan: -Acetaminophen 650mg PO Q6H PRN PAIN 1-3 Diet - Heart Healthy diet DVT PPx - subcutaneous heparin Code Status - DNR/DNI Problem List: 1. Alzheimer's dementia Pain Ratin Pain Location: Shoulders Pain Goal: Pain 4 or less Pain Plan: As noted in plan Tomorrow's Labs & Rationales: None Consulting Request: Consulting Specialty: Psychiatry Consulting Physician: Janusz Moy APRN Reason for Consult: Suicidal idea, depression
[2016-07-29 09:45] VITALS: BP 126/70
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
[2016-07-29] MEDS ORDERED: LEXAPRO5 M1 PO (13:29)
[2016-07-29] MEDS ORDERED: NICOTINE PATCH1 EAC1 TOP (13:29)
[2016-07-29] MEDS ORDERED: TYLENOL325 M1 PO (13:29)
[2016-07-29] MEDS ORDERED: AMLODIPINE BESYL5 M1 PO (13:29)
--- NOTE | 2016-07-29 15:25 | PN- Att Addend ---
Attending MD Review Statement Attending Statement Attending MD Statement: examined this patient, discuss w/resident/PA/ARCHITECTURAL ENGINEER, agreed w/resident/PA/ARCHITECTURAL ENGINEER, reviewed EMR data (avail), discussed w/nursing, discussed w/ case mgmt Attending Assessment/Plan: 61F with PMH depression, dementia, HTN, hypothyroidism admitted to medicine for UTI, hypertension, and possible delirium. UA suggestive of UTI. Hypertension is improved. Labs show subclinical hypothyroidism. Urine culture growing gram negative rods- E coli which is la senstive. Plan - Stable for discharge home today . d/w case assembler and social media assistant. DC home- home care arranged. - Amoxicillin to complete 5 day course for UTI - Continue Amlodipine for hypertension - Continue Synthroid- Free T4 normal range.
--- NOTE | 2016-07-30 07:28 | NUR ---
Late Entry: Aware of patients discharge home yesterday. Meeting held yesterday morning after direct customer service representative from Elderly Protective Services met with patient here at hospital. Present at that meeting with EPS were Dr. Xiong, Dr. Clemons, Tanisha Gibson RN(gearcase assembler) and myself. EPS believes that patient can be discharged home, and HHS have been coordinated with [facility], who will assist patient and her daughter with medication monitoring, entitlement application assistance. Dr. Guerrero is PCP.
== END 2016-07-29 15:39 | disposition home health service (06) | DRG 880 ==
LOC: ENRESERVTM → ENRESERVDT → ERH 17:56 → 2NB 07-24 15:28 → ENPENDDIS 07-24 15:28 → ERHI 07-24 15:28 → 2NB 07-24 15:28
PROVIDERS: Internal Medicine Endocrinology, Diabetes & Metabolism; Internal Medicine Interventional Cardiology; Physician Assistant; ADMIT Hospitalist
DX: F05 Delirium due to known physiological condition (principal); G30.9 Alzheimer's disease, unspecified; F02.81 Dementia in other diseases classified elsewhere, unspecified severity, with behavioral disturbance; N39.0 Urinary tract infection, site not specified; R41.0 Disorientation, unspecified; E03.9 Hypothyroidism, unspecified; F41.8 Other specified anxiety disorders; I10 Essential (primary) hypertension
CPT/HCPCS: 2NSBP; 36415; 80307; 81001; 82436; 87040; 87086; 93005; 93010; 99232; G0463; G0480; J0696; J1644; Q2036

== ENCOUNTER 2016-08-24 12:03 | Emergency (ER) | payer OTHER ==
[~2016-08-24] VITALS: Ht 167.6 cm; Wt 72.6 kg
[~2016-08-24 12:03] MED LIST changes: +AMLODIPINE BESYL5 M1 PO; +LEXAPRO5 M1 PO; +NICOTINE PATCH1 EAC1 TOP; +OXYCODONE HCL15 M1 PO; +OXYCONTIN20 M1 PO; +TYLENOL325 M1 PO
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
[2016-08-24 12:38] LABS: ABSOLUTE BASOPHIL COUNT 0 /CUMM (0.0-0.2); ABSOLUTE EOSINOPHIL COUNT 0.1 /CUMM (0.0-0.7); ABSOLUTE GRANULOCYTE CT 6.6 /CUMM (1.4-6.5); ABSOLUTE LYMPH COUNT 1.8 /CUMM (1.2-3.4); ABSOLUTE MONOCYTE COUNT 0.5 /CUMM (0.10-0.60); BASOPHIL % 0.3 % (0.0-2.0); GRANULOCYTE % 72.9 % (42.2-75.2); HEMATOCRIT 41.5 % (37-47); MEAN CORPUSCULAR HGB 33.1 PG (27.0-31.0); MEAN CORPUSCULAR HGB CONC 34.9 G/DL (33.0-37.0); MEAN CORPUSCULAR VOLUME 94.8 FL (81.0-99.0); MEAN PLATELET VOLUME 6.9 FL (7.4-10.4); PLATELET COUNT 282 /CUMM (130-400); RED BLOOD CELL CT 4.37 /CUMM (4.20-5.40); WHITE BLOOD CELL COUNT 9.1 /CUMM (4.8-10.8)
--- NOTE | 2016-08-24 14:06 | RADIOLOGY REPORT ---
EXAMINATION: XR CHEST CLINICAL INFORMATION: Productive cough and right-sided chest pain COMPARISON: 07/17/2015 TECHNIQUE: 2 views of the chest were obtained. FINDINGS: Cardiac and mediastinal silhouettes are normal in appearance. The lungs and pleural spaces are clear. Mild degenerative changes are demonstrated in the thoracic spine. IMPRESSION: No acute cardiopulmonary process is demonstrated.
[2016-08-24] MEDS ORDERED: LEVOTHYROXINE200 MC1 PO (14:33)
[2016-08-24] MEDS ORDERED: MOBIC15 M1 PO (14:33)
[2016-08-24] MEDS ORDERED: DELTASONE20 MG PO (15:24)
[2016-08-24] MEDS ORDERED: GUAIFENESIN-COD10 ML PO (15:24)
[2016-08-24] MEDS ORDERED: ZITHROMAX250 M2 PO (15:24)
[2016-08-24] MEDS ORDERED: PROVENTIL HFA6.7 GM INH (15:24)
[2016-08-24 15:52] VITALS: BP 139/65
== END 2016-08-24 17:30 ==
LOC: ERH 12:03
PROVIDERS: Physician Assistant Medical
DX: J40 Bronchitis, not specified as acute or chronic (principal); R07.89 Other chest pain; Z72.0 Tobacco use
CPT/HCPCS: 1263; 81003; 87804; 87804-59; 93005; 93010

== ENCOUNTER 2016-08-31 13:22 | Emergency (ER) | payer OTHER ==
[~2016-08-31 13:22] MED LIST changes: +DELTASONE20 MG PO; +GUAIFENESIN-COD10 ML PO; +LEVOTHYROXINE200 MC1 PO; +MOBIC15 M1 PO; +PROVENTIL HFA6.7 GM INH; +ZITHROMAX250 M2 PO
--- NOTE | 2016-08-31 13:26 | ED DYSPNEA/ASTHMA COMPLAINT ---
History of Present Illness General Chief Complaint: General Adult Stated Complaint: BIBA FOR COUGH Source: patient, family, old records, EMS Exam Limitations: dementia Vital Signs & Intake/Output Vital Signs & Intake/Output Vital Signs Date Time Temp Pulse Resp B/P Pulse O2 O2 Flow FiO2 Ox Delivery Rate 08/31 1412 97.8 55 22 126/59 98 Room Air 08/31 1345 100 Room Air 08/31 1335 97.8 78 24 164/65 100 Room Air Allergies Coded Allergies: NO KNOWN ALLERGIES (02/13/15) Reconcile Medications Acetaminophen (Tylenol) 325 MG TABLET 650 MG PO Q6P PRN PAIN SCALE 1-3 (MILD) Albuterol Sulfate (Proventil Hfa) 90 MCG HFA.AER.AD 2 PUF INH Q4 sob Amlodipine Besylate 5 MG TABLET 5 MG PO DAILY blood pressure Azithromycin (Zithromax) 250 MG TABLET 1 DP PO AD bronchitis 2 the first day followed by 1 for days 2-5 Escitalopram Oxalate (Lexapro) 5 MG TABLET 5 MG PO DAILY Depression Gabapentin 400 MG CAPSULE 1 CAP PO TID NEUROPATHY (Reported) Levothyroxine Sodium 200 MCG TABLET 1 TAB PO DAILY AC THYROID (Reported) Meloxicam (Mobic) 15 MG TABLET 1 TAB PO DAILY PRN PAIN (Reported) Oxycodone HCl (Oxycontin) 20 MG TAB.ER.12H 1 TAB PO DAILY PAIN (Reported) Oxycodone HCl 15 MG TABLET 1 TAB PO TID PAIN (Reported) Prednisone (Deltasone) 20 MG TABLET 1 TAB PO BID BRONCHITIS Robitussin AC (Guaifenesin-Codeine Syrup) 200 MG-20 MG/10 ML LIQUID 5-10 ML PO Q6P PRN cough Triage Nurses Notes Reviewed? yes HPI: Patient seen here approximately one week ago for a nonproductive cough. Patient 's workup was negative so she was discharged home. Patient] the emergency room because she still has a nonproductive cough and has a sharp pain when she coughs. The pain is in the right anterior superior portion of her chest. Pain is only present when she coughs. There is no pain when she is not coughing. There is no shortness of breath. There is no radiation of the pain. The pain lasts for seconds and then goes away. At its worst the pain is moderate on the pain scale. Patient denies any dyspnea on exertion or orthopnea. There is no anorexia. There is no nausea or vomiting. There is no fevers or chills. Past History Travel History Traveled to [place] past 21 day No Medical History Any Pertinent Medical History? 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 No Review of Systems Review of Systems Constitutional: Reports: no symptoms. EENTM: Reports: no symptoms. Respiratory: Reports: see HPI, cough. Cardiovascular: Reports: see HPI, chest pain. GI: Reports: no symptoms. Genitourinary: Reports: no symptoms. Musculoskeletal: Reports: no symptoms. Skin: Reports: no symptoms. Neurological/Psychological: Reports: no symptoms. Hematologic/Endocrine: Reports: no symptoms. Immunologic/Allergic: Reports: no symptoms. All Other Systems: Reviewed and Negative Physical Exam Physical Exam General Appearance: well developed/nourished, alert, awake, mild distress Head: atraumatic, normal appearance Eyes: Bilateral: PERRL, EOMI. Ears, Nose, Throat: normal pharynx, normal ENT inspection, hearing grossly normal Neck: normal inspection, supple, full range of motion Respiratory: normal breath sounds, chest non-tender, no respiratory distress, lungs clear Cardiovascular: regular rate/rhythm, normal peripheral pulses Gastrointestinal: normal bowel sounds, soft, non-tender, no organomegaly Extremities: normal inspection, normal capillary refill, normal range of motion, no edema Neurologic/Psych: no motor/sensory deficits, awake, alert, oriented x 3, normal mood/affect Skin: intact, normal color, warm/dry Lymphatic: no anterior cervical alexis Core Measures ACS in differential dx? No Severe Sepsis Present: No Septic Shock Present: No Progress Differential Diagnosis: AMI, bronchitis, CHF, COPD, pneumonia, pneumothorax Plan of Care: Orders Procedure Date/time Status CASE MANAGEMENT CONSULT 08/31 1349 Active D-DIMER 08/31 1348 Complete Telemetry/Independent Jeweler 08/31 1324 Active TROPONIN LEVEL 08/31 1324 Complete COMPREHENSIVE METABOLIC PANEL 08/31 1324 Complete CBC WITHOUT DIFFERENTIAL 08/31 1324 Complete EKG 08/31 1324 Active Laboratory Tests 08/31/16 1349: Anion Gap 6, Estimated GFR > 60, BUN/Creatinine Ratio 32.9 H, Glucose 98, Calcium 10.4 H, Total Bilirubin 0.7, AST 15, ALT 24, Alkaline Phosphatase 62, Troponin I < 0.01, Total Protein 6.8, Albumin 4.0, Globulin 2.8, Albumin/ Globulin Ratio 1.4, D-Dimer < 200, CBC w Diff NO MAN DIFF REQ, RBC 4.12 L, MCV 95.6, MCH 33.0 H, RDW 13.6, MPV 7.4, Gran % 68.9, Lymphocytes % 20.3 L, Monocytes % 9.4 H, Eosinophils % 0.9, Basophils % 0.5, Absolute Granulocytes 7.0 H, Absolute Lymphocytes 2.1, Absolute Monocytes 1.0 H, Absolute Eosinophils 0.1, Absolute Basophils 0.1, PUBS MCHC 34.5 08/31/16 1344: D-Dimer Cancelled 08/31/16 1325: D-Dimer Cancelled Diagnostic Imaging: Viewed by Me: Radiology Read. Discussed w/RAD: Radiology Read. CXR Impression: PATIENT: GARY CHANG PRESENT AGE : 61 PATIENT ACCOUNT NO: [id number] : 54 LOCATION: [facility] ORDERING PHYSICIAN: RITO HUSSEIN MD SERVICE DATE: 08/31/16 EXAM TYPE: RAD - XRY-PORTABLE CHEST XRAY EXAMINATION: XR PORTABLE CHEST CLINICAL INFORMATION: Productive cough. Suspected pneumonia. COMPARISON: Chest done on 08/24/2016. TECHNIQUE: Portable AP view of the chest was obtained. FINDINGS: Both lung roberto are symmetrically expanded and appear clear. The cardiomediastinal silhouette is within normal limits. There is no pleural effusion present. The visualized upper abdomen is unremarkable. Incidental note is made of apparent marked widening of the left acromioclavicular distance, appear unchanged since prior study. Mild degenerative changes are noted at the right acromioclavicular joint. IMPRESSION: No acute cardiopulmonary disease. Persistent apparent widening of the left acromioclavicular distance, unchanged since 08/24/2016. DICTATED BY: NEGRITO CHAIREZ MD DATE/TIME DICTATED:08/31/161439 CLINICAL SERVICES DIRECTOR:RAI DATE/TIME TRANSCRIBED:08/31/161439 CONFIDENTIAL, DO NOT COPY WITHOUT APPROPRIATE AUTHORIZATION. <Electronically signed in Other Vendor System> SIGNED BY: NEGRITO CHAIREZ MD 08/31/16 1514 Initial ED EKG: NSR, no ST T wave changes Prior EKG: unchanged Departure Departure Disposition: HOME OR SELF CARE Condition: Stable Clinical Impression Primary Impression: Bronchitis Referrals: IVETH BURNS MD (PCP/Family) Additional Instructions: RN IF SYMPTOMS WORSEN OR FOR ANY COCNERNS Departure Forms: Customer Survey General Discharge Information Critical Care Note Critical Care Note Critical Care Time: non-applicable
[2016-08-31 14:16] LABS: ABSOLUTE BASOPHIL COUNT 0.1 /CUMM (0.0-0.2); ABSOLUTE EOSINOPHIL COUNT 0.1 /CUMM (0.0-0.7); ABSOLUTE LYMPH COUNT 2.1 /CUMM (1.2-3.4); BASOPHIL % 0.5 % (0.0-2.0); EOSINOPHIL % 0.9 % (0-5); GRANULOCYTE % 68.9 % (42.2-75.2); HEMATOCRIT 39.4 % (37-47); MEAN CORPUSCULAR HGB CONC 34.5 G/DL (33.0-37.0); MEAN CORPUSCULAR VOLUME 95.6 FL (81.0-99.0); MEAN PLATELET VOLUME 7.4 FL (7.4-10.4); PLATELET COUNT 284 /CUMM (130-400); RBC DISTRIBUTION WIDTH 13.6 % (11.5-14.5); RED BLOOD CELL CT 4.12 /CUMM (4.20-5.40); WHITE BLOOD CELL COUNT 10.2 /CUMM (4.8-10.8)
--- NOTE | 2016-08-31 15:14 | RADIOLOGY REPORT ---
EXAMINATION: XR PORTABLE CHEST CLINICAL INFORMATION: Productive cough. Suspected pneumonia. COMPARISON: Chest done on 08/24/2016. TECHNIQUE: Portable AP view of the chest was obtained. FINDINGS: Both lung roberto are symmetrically expanded and appear clear. The cardiomediastinal silhouette is within normal limits. There is no pleural effusion present. The visualized upper abdomen is unremarkable. Incidental note is made of apparent marked widening of the left acromioclavicular distance, appear unchanged since prior study. Mild degenerative changes are noted at the right acromioclavicular joint. IMPRESSION: No acute cardiopulmonary disease. Persistent apparent widening of the left acromioclavicular distance, unchanged since 08/24/2016.
[2016-08-31 15:35] VITALS: BP 166/73
== END 2016-08-31 16:10 ==
LOC: ERH 13:22
PROVIDERS: Emergency Medicine
DX: J40 Bronchitis, not specified as acute or chronic (principal); R07.9 Chest pain, unspecified
CPT/HCPCS: 93005; 93010

== ENCOUNTER 2016-09-03 16:14 | Emergency (ER) | payer OTHER ==
[~2016-09-03] VITALS: Ht 165.1 cm; Wt 108.9 kg
--- NOTE | 2016-09-03 16:52 | ED GENERAL ADULT ---
History of Present Illness General Chief Complaint: Dyspnea (COPD, CHF, Other) Stated Complaint: BIBA FOR EVAL OF DIFF BREATHING Source: patient Exam Limitations: confusion, dementia, poor historian, physical impairment Vital Signs & Intake/Output Vital Signs & Intake/Output Vital Signs Date Time Temp Pulse Resp B/P Pulse O2 O2 Flow FiO2 Ox Delivery Rate 09/036 96.2 66 18 149/70 99 Room Air 09/03 1823 96.2 68 18 141/64 98 Room Air 09/03 1709 97 09/03 1630 Room Air 09/03 1615 98.0 68 22 142/65 98 Room Air ED Intake and Output 09/04 0000 09/03 1200 Intake Total Output Total Balance Patient 240 lb Weight Allergies Coded Allergies: NO KNOWN ALLERGIES (02/13/15) Reconcile Medications Acetaminophen (Tylenol) 325 MG TABLET 650 MG PO Q6P PRN PAIN SCALE 1-3 (MILD) Albuterol Sulfate (Proventil Hfa) 90 MCG HFA.AER.AD 2 PUF INH Q4 sob Amlodipine Besylate 5 MG TABLET 5 MG PO DAILY blood pressure Azithromycin (Zithromax) 250 MG TABLET 1 DP PO AD bronchitis 2 the first day followed by 1 for days 2-5 Doxycycline Hyclate (Vibramycin) 100 MG CAPSULE 1 CAP PO BID BRONCHITIS\ Escitalopram Oxalate (Lexapro) 5 MG TABLET 5 MG PO DAILY Depression Gabapentin 400 MG CAPSULE 1 CAP PO TID NEUROPATHY (Reported) Levothyroxine Sodium 200 MCG TABLET 1 TAB PO DAILY AC THYROID (Reported) Meloxicam (Mobic) 15 MG TABLET 1 TAB PO DAILY PRN PAIN (Reported) Oxycodone HCl (Oxycontin) 20 MG TAB.ER.12H 1 TAB PO DAILY PAIN (Reported) Oxycodone HCl 15 MG TABLET 1 TAB PO TID PAIN (Reported) Prednisone 20 MG TABLET 2 TAB PO DAILY BRONCHITIS Prednisone (Deltasone) 20 MG TABLET 1 TAB PO BID BRONCHITIS Robitussin AC (Guaifenesin-Codeine Syrup) 200 MG-20 MG/10 ML LIQUID 5-10 ML PO Q6P PRN cough Triage Note: BIBA AFTER BEING FOUND OUTSIDE HER HOME WITH AMS. COMPLAINING OF SOB AND RIGHT SIDED CHEST PAIN. PD WAS CALLED TO HER HOUSE AFTER SHE FAILED TO PICK HER GRANDAUGHTER UP AT HER BUS STOP AFTER SCHOOL TODAY. PT WITH HX OF ALZHEIMERS. PT AWAKE, ALERT TO PERSON, PLACE BUT NOT TIME. UNABLE TO TELL ME WHY SHE WAS BROUGHT TO HOSPITAL. PT WITH NON PRODUCTIVE COUGH CAUSING SOB-O2 SATS 98% ON ROOM AIR. SKIN COOL AND DRY. IV STARTED BY EMS AND 1 NEB TY GIVEN PRIOR TO ARRIVAL. Triage Nurses Notes Reviewed? yes Onset: Abrupt Duration: hour(s): Timing: recent history HPI: 09/03/16 5 PM 62-year-old female presents to the emergency department by ambulance with difficulty breathing. The patient states she was in her usual state of health until the past 48 hours and she developed difficulty breathing and shortness of breath. She denies chest pain. She has a past medical history of organic brain syndrome. She is pleasantly confused at times. I spoke with the daughter on the phone who relayed much of the history. The patient is at her baseline mental status according to the daughter. The onset of symptoms were abrupt, the duration is really unknown, the severity is significant; as her symptoms required her to come to the emergency department for care. She has associated cough and difficulty breathing. No chest pain. No fever. Past History Travel History Traveled to [place] past 21 day No Medical History Any Pertinent Medical History? 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 No Review of Systems Review of Systems Constitutional: Denies: fever. EENTM: Reports: no symptoms. Respiratory: Reports: cough, short of breath. Cardiovascular: Denies: chest pain. GI: Reports: no symptoms. Genitourinary: Reports: no symptoms. Musculoskeletal: Reports: no symptoms. Skin: Reports: no symptoms. Neurological/Psychological: Reports: confusion. Hematologic/Endocrine: Denies: bruising, bleeding. Physical Exam Physical Exam General Appearance: alert, awake, anxious, mild distress Head: atraumatic, normal appearance Eyes: Bilateral: normal appearance, PERRL, EOMI. Ears, Nose, Throat: normal pharynx, normal ENT inspection, hearing grossly normal Neck: normal inspection, supple, full range of motion Respiratory: chest non-tender, wheezing Cardiovascular: regular rate/rhythm Peripheral Pulses: 4+ radial (R), 4+ radial (L) Gastrointestinal: soft, non-tender Back: normal range of motion Extremities: normal inspection, normal capillary refill, normal range of motion Neurologic/Psych: awake, alert Skin: intact, normal color, warm/dry Comments: Chest x-ray results shown below No pneumonia No CHF Core Measures ACS in differential dx? No CVA/TIA Diagnosis: No Severe Sepsis Present: No Septic Shock Present: No Progress Differential Diagnoses I considered the following diagnoses in my evaluation of the patient: [ Bronchitis, pneumonia, asthma, COPD, congestive heart failure, pulmonary embolism, acute coronary syndrome] Plan of Care: Orders Procedure Date/time Status TROPONIN LEVEL 09/03 1846 Complete EKG 09/03 1819 Active TROPONIN LEVEL 09/03 1653 Complete D-DIMER 09/03 165 Complete COMPREHENSIVE METABOLIC PANEL 09/03 1653 Complete CBC WITHOUT DIFFERENTIAL 09/03 165 Complete B-TYPE NATRIURETIC PEP (BNP) 09/03 165 Complete Laboratory Tests 09/03/16 1850: Troponin I < 0.01 09/03/16 1703: Anion Gap 11, Estimated GFR > 60, BUN/Creatinine Ratio 21.4, Glucose 93, Calcium 10.6 H, Total Bilirubin 0.8, AST 17, ALT 18, Alkaline Phosphatase 64, Troponin I < 0.01, Otw-H-Ligtxknliih Pept 70.0, Total Protein 6.4, Albumin 3.9, Globulin 2.5, Albumin/Globulin Ratio 1.6, D-Dimer < 200, CBC w Diff NO MAN DIFF REQ, RBC 4.05 L, MCV 96.5, MCH 32.9 H, RDW 13.1, MPV 7.6, Gran % 58.6, Lymphocytes % 26.7, Monocytes % 12.4 H, Eosinophils % 1.8, Basophils % 0.5, Absolute Granulocytes 4.8, Absolute Lymphocytes 2.2, Absolute Monocytes 1.0 H, Absolute Eosinophils 0.1, Absolute Basophils 0, PUBS MCHC 34.1 Initial ED EKG: NSR, nonspecific ST T wave chg, motion artifact Departure Departure Disposition: HOME OR SELF CARE Condition: Stable Clinical Impression Primary Impression: Bronchitis Secondary Impressions: Alzheimers disease Referrals: IVETH BURNS MD (PCP/Family) Departure Forms: Customer Survey General Discharge Information Prescriptions: Current Visit Scripts Doxycycline Hyclate (Vibramycin) 1 CAP PO BID #20 CAP Prednisone 2 TAB PO DAILY #12 TAB Comments 09/03/16 8:35 PM The patient is comfortable after the albuterol treatment Lungs are clear on reevaluation EKG is unchanged Second troponin is negative O2 sat is 98% Chest x-ray is negative I spoke with the daughter who will ensure that she follows up with her doctor on Thursday We'll treat with Vibramycin and an additional course of steroids for COPD and bronchitis Critical Care Note Critical Care Note Critical Care Time: non-applicable
[2016-09-03 17:24] LABS: ABSOLUTE BASOPHIL COUNT 0 /CUMM (0.0-0.2); ABSOLUTE EOSINOPHIL COUNT 0.1 /CUMM (0.0-0.7); ABSOLUTE GRANULOCYTE CT 4.8 /CUMM (1.4-6.5); ABSOLUTE LYMPH COUNT 2.2 /CUMM (1.2-3.4); BASOPHIL % 0.5 % (0.0-2.0); EOSINOPHIL % 1.8 % (0-5); GRANULOCYTE % 58.6 % (42.2-75.2); HEMATOCRIT 39.1 % (37-47); MEAN CORPUSCULAR HGB 32.9 PG (27.0-31.0); MEAN CORPUSCULAR HGB CONC 34.1 G/DL (33.0-37.0); MEAN CORPUSCULAR VOLUME 96.5 FL (81.0-99.0); MEAN PLATELET VOLUME 7.6 FL (7.4-10.4); PLATELET COUNT 231 /CUMM (130-400); RBC DISTRIBUTION WIDTH 13.1 % (11.5-14.5); RED BLOOD CELL CT 4.05 /CUMM (4.20-5.40); WHITE BLOOD CELL COUNT 8.3 /CUMM (4.8-10.8)
--- NOTE | 2016-09-03 17:50 | RADIOLOGY REPORT ---
EXAMINATION: XR PORTABLE CHEST CLINICAL INFORMATION: Shortness of breath COMPARISON: 08/31/2016 TECHNIQUE: Portable AP view of the chest was obtained. FINDINGS: Cardiac leads overlie the chest. No consolidation, edema, or effusion. No pneumothorax. The cardiomediastinal silhouette is unchanged. No acute osseous abnormality. Persistent widening at the left acromioclavicular joint. IMPRESSION: No acute pulmonary findings.
[2016-09-03] MEDS ORDERED: PREDNISONE20 M1 PO (20:38)
[2016-09-03] MEDS ORDERED: VIBRAMYCIN100 MG PO (20:38)
[2016-09-03 21:36] VITALS: BP 149/70
== END 2016-09-03 21:54 ==
LOC: ERH 16:14
PROVIDERS: Emergency Medicine
DX: J40 Bronchitis, not specified as acute or chronic (principal); G30.9 Alzheimer's disease, unspecified
CPT/HCPCS: 1263; 93005; 93010; 96374; J2930

== ENCOUNTER 2016-09-09 10:41 | Emergency (ER) | payer OTHER ==
[~2016-09-09] VITALS: Ht 165.1 cm; Wt 81.6 kg
[~2016-09-09 10:41] MED LIST changes: +PREDNISONE20 M1 PO; +VIBRAMYCIN100 MG PO
--- NOTE | 2016-09-09 10:59 | ED DYSPNEA/ASTHMA COMPLAINT ---
History of Present Illness General Chief Complaint: Dyspnea (COPD, CHF, Other) Stated Complaint: SOB Source: patient Exam Limitations: no limitations Vital Signs & Intake/Output Vital Signs & Intake/Output Vital Signs Date Time Temp Pulse Resp B/P Pulse O2 O2 Flow FiO2 Ox Delivery Rate 09/09 1341 98.8 69 18 137/72 97 Room Air Room Air 09/09 1131 99.2 70 20 139/71 03 1114 95 09/09 1052 99.0 66 24 146/62 100 Room Air Allergies Coded Allergies: NO KNOWN ALLERGIES (02/13/15) Reconcile Medications Acetaminophen (Tylenol) 325 MG TABLET 650 MG PO Q6P PRN PAIN SCALE 1-3 (MILD) Albuterol Sulfate (Proventil Hfa) 90 MCG HFA.AER.AD 2 PUF INH Q4 sob Albuterol Sulfate 2.5 MG/0.5 ML VIAL.NEB 1 Vial INH/KIKO Q4 bronchitis Amlodipine Besylate 5 MG TABLET 1 TAB PO DAILY htn Amlodipine Besylate 5 MG TABLET 5 MG PO DAILY blood pressure Azithromycin (Zithromax) 250 MG TABLET 1 DP PO AD bronchitis 2 the first day followed by 1 for days 2-5 Brompheniramine/Pseudoephed/Dm (Bromfed Dm Cough Syrup) 2 MG-30 MG-10 MG/5 ML SYRUP 5-10 ML PO Q4-6 PRN PRN cough Doxycycline Hyclate (Vibramycin) 100 MG CAPSULE 1 CAP PO BID BRONCHITIS\ Doxycycline Hyclate 100 MG TABLET 1 TAB PO BID bronchitis Escitalopram Oxalate (Lexapro) 5 MG TABLET 5 MG PO DAILY Depression Fluticasone/Salmeterol (Advair 250-50 Diskus) 250 MCG-50 MCG/DOSE BLST.W.DEV 1 PUF INH BID bronchitis Gabapentin 400 MG CAPSULE 1 CAP PO TID NEUROPATHY (Reported) Levothyroxine Sodium 200 MCG TABLET 1 TAB PO DAILY AC THYROID (Reported) Meloxicam (Mobic) 15 MG TABLET 1 TAB PO DAILY PRN PAIN (Reported) Oxycodone HCl (Oxycontin) 20 MG TAB.ER.12H 1 TAB PO DAILY PAIN (Reported) Oxycodone HCl 15 MG TABLET 1 TAB PO TID PAIN (Reported) Prednisone 20 MG TABLET 2 TAB PO DAILY BRONCHITIS Prednisone (Deltasone) 20 MG TABLET 1 TAB PO BID BRONCHITIS Robitussin AC (Guaifenesin-Codeine Syrup) 200 MG-20 MG/10 ML LIQUID 5-10 ML PO Q6P PRN cough Triage Note: PT C/O BRONCHITIS X 3 WEEKS, SEEN HERE FOR SAME AND NOT GETTING BETTER BUT WORSE. PT UNABLE TO LAY FLAT AT NIGHT. PT C/O RIGHT SIDED CP. COUGH IS PRODUCTIVE. Triage Nurses Notes Reviewed? yes Onset: Abrupt Duration: week(s): (3), constant, continues in ED Timing: recent history Severity: moderate, severe Activities at Onset: none HPI: 61-year-old female comes into emergency room for further evaluation of shortness of breath and cough and congestion has been going on for the past 3 weeks getting progressively worse. Patient also reports some right-sided chest pain. Associated fever. Denies any vomiting. Patient has been seen here a few times. Denies any history of COPD but does admit to smoking. Denies any history of heart problems. Nothing seems to make the symptoms better or worse. (SELWYN PALACIO) Past History Travel History Traveled to [place] past 21 day No Medical History Any Pertinent Medical History? 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 No (SELWYN PALACIO) Review of Systems Review of Systems Constitutional: Reports: no symptoms. EENTM: Reports: no symptoms. Respiratory: Reports: see HPI. Cardiovascular: Reports: see HPI. GI: Reports: no symptoms. Genitourinary: Reports: no symptoms. Musculoskeletal: Reports: no symptoms. Skin: Reports: no symptoms. Neurological/Psychological: Reports: no symptoms. Hematologic/Endocrine: Reports: no symptoms. Immunologic/Allergic: Reports: no symptoms. All Other Systems: Reviewed and Negative (SELWYN PALACIO) Physical Exam Physical Exam General Appearance: well developed/nourished, no apparent distress, alert, awake Head: atraumatic, normal appearance Eyes: Bilateral: normal appearance, EOMI. Ears, Nose, Throat: normal pharynx, normal ENT inspection Neck: normal inspection Respiratory: decreased breath sounds, stridor, respiratory distress (mild) Cardiovascular: regular rate/rhythm Extremities: normal inspection Neurologic/Psych: awake, alert, oriented x 3, normal gait, normal mood/affect Skin: intact, normal color Core Measures ACS in differential dx? No Severe Sepsis Present: No Septic Shock Present: No (SELWYN PALACIO) Progress Differential Diagnosis: asthma, AMI, bronchitis, costochondritis, CHF, COPD, musculoskeletal pain, pericarditis, pulmonary embolism, pneumonia, pneumothorax, rib fracture, unstable angina Plan of Care: Orders Procedure Date/time Status Regular Diet 09/09 D Active TROPONIN LEVEL 09/09 1058 Complete COMPREHENSIVE METABOLIC PANEL 09/09 1058 Complete CBC WITHOUT DIFFERENTIAL 09/09 1058 Complete EKG 09/09 1042 Active Laboratory Tests 09/09/16 1100: Anion Gap 9, Estimated GFR > 60, BUN/Creatinine Ratio 30.0 H, Glucose 162 H, Calcium 10.5 H, Total Bilirubin 0.6, AST 16, ALT 22, Alkaline Phosphatase 67, Troponin I < 0.01, Total Protein 6.9, Albumin 4.2, Globulin 2.7, Albumin/ Globulin Ratio 1.6, CBC w Diff MAN DIFF ORDERED, RBC 4.17 L, MCV 95.6, MCH 33.2 H, RDW 12.9, MPV 7.4, Gran % 89.6 H, Lymphocytes % 7.2 L, Monocytes % 2.6, Eosinophils % 0.2, Basophils % 0.4, Absolute Granulocytes 9.1 H, Absolute Lymphocytes 0.7 L, Absolute Monocytes 0.3, Absolute Eosinophils 0, Absolute Basophils 0, Platelet Estimate ADEQUATE, Normocytic RBCs VERIFIED, Normochromic RBCs VERIFIED, PUBS MCHC 34.7 Diagnostic Imaging: Viewed by Me: Radiology Read. Discussed w/RAD: Radiology Read. Radiology Impression: EXAM TYPE: CAT - CT CHEST WO IV CONTRAST EXAMINATION: CT CHEST WITHOUT CONTRAST CLINICAL INFORMATION: Shortness of breath. Persisting cough. COMPARISON: Chest radiograph dated 09/03/2016. TECHNIQUE: Multidetector volumetric CT imaging of the chest was done. Axial MIP volume rendering provided. Sagittal and coronal reformatted images were obtained. 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 Lungs are clear. LUNGS: No consolidation. Central airways are clear. No significant atelectasis. Incidental note is made of an accessory transverse fissure the superior and basilar segments of the right lower lobe. A 4 mm angular nodule in the right lower lobe on image 329/529 of series 5 is flat on coronal images and likely correspond to scarring or a flat pulmonary lymph node. There is a similar flattened appearance to the 3 mm nodular focus in the lateral aspect of the right lower lobe on image 334/528 advanced to the 3 mm nodule in the posterior aspect of the left lower lobe on image 308/528. No suspicious pulmonary nodules are identified. MEDIASTINUM: Calcific atherosclerosis is present in the thoracic aorta and coronary arteries. Heart is normal in size. No pericardial effusion. Supraaortic arteries normal in caliber. No mediastinal or hilar adenopathy. PLEURA: There is no pleural effusion. No pleural mass or thickening. AXILLA: No lymphadenopathy. UPPER ABDOMEN: Unremarkable. OSSEOUS STRUCTURES: Mild degenerative disc disease present in the midthoracic spine. No fracture or spondylolisthesis. No osseous lesions. Mild degenerative arthritis is present in the glenohumeral joints. IMPRESSION: 1. No acute intrathoracic findings. 2. A few small pulmonary nodules measuring 4 mm or less in average diameter, likely an intrapulmonary lymph nodes or other benign entities based upon the angular, flattened morphology. No follow -up is necessary. DICTATED BY: SPENCER BUENO MD DATE/TIME DICTATED:09/09/161212 MILK HANDLER:RAI DATE/TIME TRANSCRIBED:09/09/161212 Initial ED EKG: normal intervals, normal p-waves, normal QRS complex, normal sinus rhythm, rate (56) (SELWYN PALACIO) Departure Departure Disposition: STILL A PATIENT Condition: Stable Clinical Impression Primary Impression: Bronchitis Referrals: STAR MEANS,[facility] Additional Instructions: Take doxycycline, Advair, and albuterol as prescribed. Follow-up with exceptional student education teacher provided. Return to the emergency room immediately if any other concerns worsening symptoms. Please go over all results of today's visit with your primary care doctor. Contact your primary care doctor to let them know you were here in the emergency room. There may be nonspecific findings which may not be related to your visit today here in the emergency room but may require further evaluation and chronic monitoring by your primary care doctor. If you had a laceration today the chance of foreign body always remains. You should follow-up with your primary care doctor for recheck in 3-5 days for a wound check. If you had an x-ray done there is a chance that a fracture could have been missed on initial read and you should follow-up with your primary care doctor for repeat x-rays if symptoms persist. If your blood pressure was elevated here in the emergency room please have rechecked by her primary care doctor within the next 48 hours by your primary care doctor. If you were prescribed a narcotic here in the emergency room or any type of controlled substances you're not allowed to drive while taking this medication or operate any type of heavy machinery. Narcotics can make you feel lightheaded dizziness nausea and can cause constipation. You may need to picker box operator a stool softener. Thank you for choosing [facility] emergency room. Please return to the emergency room immediately if you have any other concerns worsening of symptoms. Departure Forms: Customer Survey General Discharge Information Prescriptions: Current Visit Scripts Fluticasone/Salmeterol (Advair 250-50 Diskus) 1 PUF INH BID #1 INHAL Brompheniramine/Pseudoephed/Dm (Bromfed Dm Cough Syrup) 5-10 ML PO Q4-6 PRN PRN cough #120 ML Doxycycline Hyclate 1 TAB PO BID #20 TAB Albuterol Sulfate 1 Vial INH/KIKO Q4 #60 Vial Amlodipine Besylate 1 TAB PO DAILY #30 TAB Comments 09/09/2016 1:45:16 PM Patient clinically looks well. She does not appear to be in any Distress here in the emergency room upon multiple re-evaluations. Patient is able to ambulate up and down the hallways with no difficulty with an O2 saturation of 95% and higher. Patient needs follow-up with exceptional student education teacher. Likely undiagnosed COPD. Patient was seen by Dr. RODRIGUEZ. Patient understands and agrees with plan of care. Shared decision making. Discussed inpatient workup as opposed to outpatient workup and they agree with plan of care. Return to the emergency room immediately if any other concerns worsening symptoms. Patient understands and agrees with plan of care. As stated before reevaluated multiple times and continued to remain in no apparent distress here in the emergency room. Referred to exceptional student education teacher. Given a prescription for a nebulizer machine. Patient told to go to [employer] (SELWYN PALACIO) PA/COMMERCIAL LINES SALES EXECUTIVE Co-Sign Statement Statement: ED Attending supervision documentation- [] I saw and evaluated the patient. I have also reviewed all the pertinent lab results and diagnostic results. I agree with the findings and the plan of care as documented in the PA's/COMMERCIAL LINES SALES EXECUTIVE's documentation. [X] I have reviewed the ED Record and agree with the PA's/COMMERCIAL LINES SALES EXECUTIVE's documentation. [] Additions or exceptions (if any) to the PAs/COMMERCIAL LINES SALES EXECUTIVE's note and plan are summarized below: [] (JENNIFER MEANS,JANIE) Critical Care Note Critical Care Note Critical Care Time: non-applicable (SELWYN PALACIO)
[2016-09-09 11:17] LABS: ABSOLUTE BASOPHIL COUNT 0 /CUMM (0.0-0.2); ABSOLUTE EOSINOPHIL COUNT 0 /CUMM (0.0-0.7); ABSOLUTE GRANULOCYTE CT 9.1 /CUMM (1.4-6.5); ABSOLUTE LYMPH COUNT 0.7 /CUMM (1.2-3.4); ABSOLUTE MONOCYTE COUNT 0.3 /CUMM (0.10-0.60); BASOPHIL % 0.4 % (0.0-2.0); EOSINOPHIL % 0.2 % (0-5); HEMATOCRIT 39.8 % (37-47); MEAN CORPUSCULAR HGB 33.2 PG (27.0-31.0); MEAN CORPUSCULAR HGB CONC 34.7 G/DL (33.0-37.0); MEAN CORPUSCULAR VOLUME 95.6 FL (81.0-99.0); MEAN PLATELET VOLUME 7.4 FL (7.4-10.4); PLATELET COUNT 231 /CUMM (130-400); RBC DISTRIBUTION WIDTH 12.9 % (11.5-14.5); RED BLOOD CELL CT 4.17 /CUMM (4.20-5.40); WHITE BLOOD CELL COUNT 10.2 /CUMM (4.8-10.8)
[2016-09-09 11:21] LABS: GRANULOCYTE % 89.6 % (42.2-75.2)
--- NOTE | 2016-09-09 12:28 | CT SCAN REPORT ---
EXAMINATION: CT CHEST WITHOUT CONTRAST CLINICAL INFORMATION: Shortness of breath. Persisting cough. COMPARISON: Chest radiograph dated 09/03/2016. TECHNIQUE: Multidetector volumetric CT imaging of the chest was done. Axial MIP volume rendering provided. Sagittal and coronal reformatted images were obtained. 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 Lungs are clear. LUNGS: No consolidation. Central airways are clear. No significant atelectasis. Incidental note is made of an accessory transverse fissure the superior and basilar segments of the right lower lobe. A 4 mm angular nodule in the right lower lobe on image 329/529 of series 5 is flat on coronal images and likely correspond to scarring or a flat pulmonary lymph node. There is a similar flattened appearance to the 3 mm nodular focus in the lateral aspect of the right lower lobe on image 334/528 advanced to the 3 mm nodule in the posterior aspect of the left lower lobe on image 308/528. No suspicious pulmonary nodules are identified. MEDIASTINUM: Calcific atherosclerosis is present in the thoracic aorta and coronary arteries. Heart is normal in size. No pericardial effusion. Supraaortic arteries normal in caliber. No mediastinal or hilar adenopathy. PLEURA: There is no pleural effusion. No pleural mass or thickening. AXILLA: No lymphadenopathy. UPPER ABDOMEN: Unremarkable. OSSEOUS STRUCTURES: Mild degenerative disc disease present in the midthoracic spine. No fracture or spondylolisthesis. No osseous lesions. Mild degenerative arthritis is present in the glenohumeral joints. IMPRESSION: 1. No acute intrathoracic findings. 2. A few small pulmonary nodules measuring 4 mm or less in average diameter, likely an intrapulmonary lymph nodes or other benign entities based upon the angular, flattened morphology. No follow-up is necessary.
[2016-09-09] MEDS ORDERED: ADVAIR 250-501 EACH INH (13:27)
[2016-09-09] MEDS ORDERED: BROMFED DM COU118 M1 PO (13:27)
[2016-09-09] MEDS ORDERED: ALBUTEROL2.5 MG/0.5 INH/SOL (13:27)
[2016-09-09] MEDS ORDERED: DOXYCYCLINE HY100 M4 PO (13:27)
[2016-09-09] MEDS ORDERED: AMLODIPINE BESYL5 M1 PO (13:29)
[2016-09-09 13:41] VITALS: BP 137/72
== END 2016-09-09 13:47 ==
LOC: ERH 10:41
PROVIDERS: Physician Assistant Medical
DX: J40 Bronchitis, not specified as acute or chronic (principal); Z87.891 Personal history of nicotine dependence
CPT/HCPCS: 1263; 93005; 93010

== ENCOUNTER 2016-11-05 20:51 | Emergency (ER) | payer OTHER, MEDICARE ==
[~2016-11-05] VITALS: Ht 165.1 cm; Wt 99.8 kg
[~2016-11-05 20:51] MED LIST changes: +ADVAIR 250-501 EACH INH; +ALBUTEROL2.5 MG/0.5 INH/SOL; +BROMFED DM COU118 M1 PO; +DOXYCYCLINE HY100 M4 PO
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
[2016-11-05] MEDS ORDERED: ESCITALOPRAM OX10 MG PO (21:22)
[2016-11-05] MEDS ORDERED: SPIRIVA18 MCG INH (21:30)
[2016-11-05] MEDS ORDERED: NAMZARIC 14 MG1 EACH PO (21:33)
[2016-11-05] MEDS ORDERED: MELOXICAM15 M1 PO (21:34)
[2016-11-05 21:46] LABS: ABSOLUTE BASOPHIL COUNT 0 /CUMM (0.0-0.2); ABSOLUTE EOSINOPHIL COUNT 0.1 /CUMM (0.0-0.7); ABSOLUTE GRANULOCYTE CT 5.4 /CUMM (1.4-6.5); ABSOLUTE LYMPH COUNT 1.5 /CUMM (1.2-3.4); ABSOLUTE MONOCYTE COUNT 0.5 /CUMM (0.10-0.60); BASOPHIL % 0.5 % (0.0-2.0); EOSINOPHIL % 1.8 % (0-5); GRANULOCYTE % 70.7 % (42.2-75.2); HEMATOCRIT 40.3 % (37-47); MEAN CORPUSCULAR HGB 32.6 PG (27.0-31.0); MEAN CORPUSCULAR HGB CONC 34.2 G/DL (33.0-37.0); MEAN CORPUSCULAR VOLUME 95.4 FL (81.0-99.0); MEAN PLATELET VOLUME 7.4 FL (7.4-10.4); PLATELET COUNT 228 /CUMM (130-400); RBC DISTRIBUTION WIDTH 12.4 % (11.5-14.5); RED BLOOD CELL CT 4.22 /CUMM (4.20-5.40); WHITE BLOOD CELL COUNT 7.6 /CUMM (4.8-10.8)
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
[2016-11-06 18:19] VITALS: BP 158/77
== END 2016-11-06 18:55 ==
LOC: ERH 20:51
PROVIDERS: Physician Assistant Medical
DX: G30.9 Alzheimer's disease, unspecified (principal); R45.851 Suicidal ideations; F17.210 Nicotine dependence, cigarettes, uncomplicated; F41.9 Anxiety disorder, unspecified; E03.9 Hypothyroidism, unspecified; F10.10 Alcohol abuse, uncomplicated
CPT/HCPCS: 80307; 81001; G0463; G0480